=== PATIENT | female | born 1940 | race Caucasian/White ===

== ENCOUNTER 2017-04-14 14:02 | Inpatient (IN) | payer MEDICARE, OTHER ==
[~2017-04-14] VITALS: Ht 162.6 cm; Wt 94.4 kg
[~2017-04-14 14:02] MED LIST: ALEN70 PO; ALPR.5 PO; AZIT250 PO; CALCAVITD PO; CETI10 PO; ETOD200; EXEM25 PO; FOLI1 PO; HYDACE5 PO; LEVSOD100; LEVSOD125 PO; LEVSOD137 PO; LOVA20 PO; LOVA40 PO; METTREX2.5 PO; TENUATE
[2017-04-14 14:39] LABS: BASOPHILS ABSOLUTE AUTO 0.03 K/mm3 (0.00-0.23); BASOPHILS PERCENT AUTO 1 % (0-2); EOSINOPHILS ABSOLUTE AUTO 0.14 K/mm3 (0.00-0.68); EOSINOPHILS PERCENT AUTO 3 % (0-6); Hematocrit 43.5 % (33.0-51.0); Hemoglobin 13.1 g/dL (11.5-16.0); IMMATURE GRAN ABSOLUTE AUTO 0.01 K/mm3 (0.00-0.10); IMMATURE GRAN PERCENT AUTO 0 % (0-1); LYMPHOCYTES ABSOLUTE AUTO 1.28 K/mm3 (0.84-5.20); LYMPHOCYTES PERCENT AUTO 30 % (21-46); MONOCYTES ABSOLUTE AUTO 0.37 K/mm3 (0.16-1.47); MONOCYTES PERCENT AUTO 9 % (4-13); Mean Corpuscular HGB Conc 30.1 g/dL (31.5-36.5); Mean Corpuscular Volume 83 fL (80-100); Mean Platelet Volume 9.4 fL (9.1-12.4); NEUTROPHILS ABSOLUTE AUTO 2.43 K/mm3 (1.96-9.15); NEUTROPHILS PERCENT AUTO 57 % (41-73); Platelet Count 194 K/mm3 (150-400); RDW Coefficient Variation 15.5 % (11.7-14.2); RDW Standard Deviation 46.7 fL (35.1-46.3); Red Blood Cell Count 5.23 M/mm3 (3.80-5.20); White Blood Cell Count 4.26 K/mm3 (4.00-11.30)
[2017-04-14 15:01] LABS: Alanine Aminotransfer (ALT/SGP 45 U/L (12-78); Albumin, Blood 3.9 g/dL (3.4-5.0); Albumin/Globulin Ratio 1.3 (0.8-1.8); Alk Phos 64 U/L (50-136); Anion Gap 5 mmol/L (6-16); Aspartate Aminotrans (AST/SGOT 40 U/L (12-37); Bilirubin, Total 0.6 mg/dL (0.1-1.0); Blood Urea Nitrogen 20 mg/dL (8-24); Bun/Creatinine Ratio 24.1 (12.0-20.0); CO2, Blood 28 mmol/L (21-32); Calcium, Blood 7.7 mg/dL (8.5-10.1); Chloride, Blood 110 mmol/L (98-108); Creatinine, Blood 0.83 mg/dL (0.40-1.00); Globulin, Blood 3.1 g/dL (2.2-4.0); Glomerular Filtration Rate >60 (60-); Glucose, Blood 111 mg/dL (70-99); Sodium, Blood 143 mmol/L (136-145); Troponin I 0.024 ng/mL (0.000-0.040)
[2017-04-14] MEDS ORDERED: WARF5 PO (15:13)
[2017-04-14] MEDS ORDERED: DULO60 (15:14)
[2017-04-14] MEDS ORDERED: LOVA40 PO (15:14)
[2017-04-14] MEDS ORDERED: DOXY100 PO (15:18)
[2017-04-14 15:20] LABS: International Normalized Ratio 2.42; Prothrombin Time Results 25.9 Sec (9.7-11.5)
[2017-04-14 18:53] LABS: Free Thyroxine 1.34 ng/dL (0.70-1.60); Thyroxine (T4) 10.1 ug/dL (4.8-13.9)
[2017-04-14 18:56] LABS: Triiodothyronine, Free 2.61 pg/mL (2.18-3.98)
[2017-04-14 20:45] LABS: Influenza A Negative (NEGATIVE); Influenza B Negative (NEGATIVE)
[2017-04-14 20:56] LABS: Creatine Kinase MB 14.7 ng/mL (0.0-3.6); Creatine Kinase MB Index 4.1 (0.0-4.0); Troponin I 0.036 ng/mL (0.000-0.040)
[2017-04-15 03:03] LABS: Alanine Aminotransfer (ALT/SGP 32 U/L (12-78); Albumin, Blood 3.1 g/dL (3.4-5.0); Albumin/Globulin Ratio 1.3 (0.8-1.8); Alk Phos 47 U/L (50-136); Anion Gap 5 mmol/L (6-16); Aspartate Aminotrans (AST/SGOT 28 U/L (12-37); Bilirubin, Total 0.7 mg/dL (0.1-1.0); Blood Urea Nitrogen 14 mg/dL (8-24); Bun/Creatinine Ratio 20.6 (12.0-20.0); CO2, Blood 27 mmol/L (21-32); Calcium, Blood 7.1 mg/dL (8.5-10.1); Chloride, Blood 113 mmol/L (98-108); Cholesterol 131 mg/dL (50-200); Creatinine, Blood 0.68 mg/dL (0.40-1.00); Globulin, Blood 2.4 g/dL (2.2-4.0); Glomerular Filtration Rate >60 (60-); Glucose, Blood 100 mg/dL (70-99); International Normalized Ratio 2.57; Prothrombin Time Results 27.5 Sec (9.7-11.5); Sodium, Blood 145 mmol/L (136-145); Total Protein, Blood 5.5 g/dL (6.4-8.2); Triglycerides 34 mg/dL (30-160)
[2017-04-15 03:05] LABS: Creatine Kinase MB 12.9 ng/mL (0.0-3.6); Creatine Kinase MB Index 4.2 (0.0-4.0); Troponin I 0.052 ng/mL (0.000-0.040)
[2017-04-16 06:00] LABS: International Normalized Ratio 2.88
[2017-04-16] MEDS ORDERED: DESO.05TL TOP (09:54)
[2017-04-17 05:14] LABS: International Normalized Ratio 2.88
[2017-04-18 05:11] LABS: BASOPHILS ABSOLUTE AUTO 0.03 K/mm3 (0.00-0.23); BASOPHILS PERCENT AUTO 1 % (0-2); EOSINOPHILS ABSOLUTE AUTO 0.14 K/mm3 (0.00-0.68); EOSINOPHILS PERCENT AUTO 4 % (0-6); Hematocrit 40.6 % (33.0-51.0); IMMATURE GRAN ABSOLUTE AUTO 0.01 K/mm3 (0.00-0.10); IMMATURE GRAN PERCENT AUTO 0 % (0-1); LYMPHOCYTES PERCENT AUTO 27 % (21-46); MONOCYTES ABSOLUTE AUTO 0.49 K/mm3 (0.16-1.47); MONOCYTES PERCENT AUTO 12 % (4-13); Mean Corpuscular HGB Conc 29.6 g/dL (31.5-36.5); Mean Corpuscular Volume 85 fL (80-100); Mean Platelet Volume 9.9 fL (9.1-12.4); NEUTROPHILS ABSOLUTE AUTO 2.26 K/mm3 (1.96-9.15); NEUTROPHILS PERCENT AUTO 56 % (41-73); Platelet Count 156 K/mm3 (150-400); RDW Coefficient Variation 15.3 % (11.7-14.2); RDW Standard Deviation 47.2 fL (35.1-46.3); White Blood Cell Count 4.03 K/mm3 (4.00-11.30)
[2017-04-18 05:22] LABS: International Normalized Ratio 2.6; Prothrombin Time Results 27.8 Sec (9.7-11.5)
[2017-04-18 05:36] LABS: Bun/Creatinine Ratio 23.6 (12.0-20.0); Calcium, Blood 8.3 mg/dL (8.5-10.1); Creatinine, Blood 1.06 mg/dL (0.40-1.00); Potassium, Blood 4.2 mmol/L (3.5-5.5)
[2017-04-19 05:04] LABS: International Normalized Ratio 2.63; Prothrombin Time Results 28.2 Sec (9.7-11.5)
[2017-04-19] MEDS ORDERED: ACET325 PO (11:39)
[2017-04-19] MEDS ORDERED: ALBU90OI INH (11:40)
[2017-04-19] MEDS ORDERED: LEVO750 PO (11:41)
[2017-04-19] MEDS ORDERED: DOCU100 PO (11:41)
[2017-04-19] MEDS ORDERED: ATEN25 PO (11:41)
[2017-12-26] MEDS ORDERED: ELIQUIS5 MG PO (18:07)
[2017-12-26] MEDS ORDERED: METTREX2.5 PO (18:09)
[2017-12-26] MEDS ORDERED: FOLI1 PO (18:10)
[2017-12-26] MEDS ORDERED: PROLIA60 MG/1 ML SQ (18:10)
[2017-12-26] MEDS ORDERED: CALCIUM CHEWS (18:10)
== END 2017-04-19 15:20 | disposition home or self-care (01) | DRG 189 ==
LOC: ER 14:02 → MEDS 14:03 → ENPENDDIS 04-19 10:00 → MEDS 04-19 15:20
PROVIDERS: Family Medicine; Internal Medicine; Physician Assistant
DX: J96.01 Acute respiratory failure with hypoxia (principal); J18.9 Pneumonia, unspecified organism; I27.20 Pulmonary hypertension, unspecified; L40.50 Arthropathic psoriasis, unspecified; E03.9 Hypothyroidism, unspecified; E78.5 Hyperlipidemia, unspecified; I10 Essential (primary) hypertension; M81.0 Age-related osteoporosis without current pathological fracture; Z79.01 Long term (current) use of anticoagulants; Z85.3 Personal history of malignant neoplasm of breast; Z86.14 Personal history of Methicillin resistant Staphylococcus aureus infection; Z86.711 Personal history of pulmonary embolism; Z86.718 Personal history of other venous thrombosis and embolism; Z96.659 Presence of unspecified artificial knee joint; F41.9 Anxiety disorder, unspecified
CPT/HCPCS: 36415; 71046; 71260; 78452; 80048; 80053; 82465; 82550; 82553; 83880; 84145; 84436; 84439; 84443; 84478; 84481; 84484; 85025; 85379; 85610; 87804; 92610; 93005; 93010; 93017; 93306; 94761; 94762; 96361; 96374; 97161; 99285; A9500; C9113; G0378; G8978; G8979; G8980; G8996; G8997; G8998; J0280; J2060; J2785; J7030; Q9967

== ENCOUNTER 2019-04-10 18:40 | Emergency (ER) | payer MEDICARE, OTHER ==
[~2019-04-10] VITALS: Ht 160 cm; Wt 94.8 kg
[~2019-04-10 18:40] MED LIST changes: +ACET325 PO; +ALBU90OI INH; +ATEN25 PO; +CALCIUM CHEWS; +DESO.05TL TOP; +DOCU100 PO; +DOXY100 PO; +DULO60; +ELIQUIS5 MG PO; +LEVO750 PO; +PROLIA60 MG/1 ML SQ; +WARF5 PO
[2019-04-10] MEDS ORDERED: Norco 7.5-3251 EACH PO (20:58)
== END 2019-04-10 21:23 | disposition home or self-care (01) ==
LOC: ER 18:40
DX: M54.10 Radiculopathy, site unspecified (principal); Z79.899 Other long term (current) drug therapy; Z79.01 Long term (current) use of anticoagulants; Z98.890 Other specified postprocedural states
CPT/HCPCS: 93971; 96372; 99283-25; A9270; J1170

== ENCOUNTER 2020-06-08 10:29 | Emergency (ER) | payer MEDICARE, OTHER ==
[~2020-06-08] VITALS: Ht 160 cm; Wt 90.7 kg
[~2020-06-08 10:29] MED LIST changes: +Norco 7.5-3251 EACH PO
[2020-06-08] MEDS ORDERED: Roxicodone5 MG PO (15:28)
== END 2020-06-08 15:56 | disposition home or self-care (01) ==
LOC: ER 10:29
DX: S32.039A Unspecified fracture of third lumbar vertebra, initial encounter for closed fracture (principal); Z79.899 Other long term (current) drug therapy; Z79.01 Long term (current) use of anticoagulants; Z98.890 Other specified postprocedural states; X58.XXXA Exposure to other specified factors, initial encounter
CPT/HCPCS: 72131; 96372; 99283-25; A9270; J1170

== ENCOUNTER 2021-05-15 10:24 | Emergency (ER) | payer MEDICARE, OTHER ==
[~2021-05-15] VITALS: Ht 160 cm; Wt 90.7 kg
[~2021-05-15 10:24] MED LIST changes: +Roxicodone5 MG PO
[2021-05-15 11:34] LABS: BASOPHILS ABSOLUTE AUTO 0.04 K/mm3 (0.00-0.23); BASOPHILS PERCENT AUTO 0 % (0-2); EOSINOPHILS ABSOLUTE AUTO 0.03 K/mm3 (0.00-0.68); EOSINOPHILS PERCENT AUTO 0 % (0-6); Hematocrit 43.2 % (33.0-51.0); Hemoglobin 13.4 g/dL (11.5-16.0); IMMATURE GRAN ABSOLUTE AUTO 0.14 K/mm3 (0.00-0.10); IMMATURE GRAN PERCENT AUTO 1 % (0-1); LYMPHOCYTES ABSOLUTE AUTO 0.75 K/mm3 (0.84-5.20); LYMPHOCYTES PERCENT AUTO 6 % (21-46); MONOCYTES ABSOLUTE AUTO 0.63 K/mm3 (0.16-1.47); MONOCYTES PERCENT AUTO 5 % (4-13); Mean Corpuscular HGB 28.7 pg (26.0-34.0); Mean Corpuscular Volume 93 fL (80-100); NEUTROPHILS ABSOLUTE AUTO 10.62 K/mm3 (1.96-9.15); NEUTROPHILS PERCENT AUTO 87 % (41-73); Platelet Count 128 K/mm3 (150-400); RDW Coefficient Variation 15.8 % (11.7-14.2); RDW Standard Deviation 53.4 fL (35.1-46.3); Red Blood Cell Count 4.67 M/mm3 (3.80-5.20); White Blood Cell Count 12.21 K/mm3 (4.00-11.30)
[2021-05-15 11:42] LABS: Calcium, Blood 8.7 mg/dL (8.5-10.1); Creatinine, Blood 1.16 mg/dL (0.40-1.00); Potassium, Blood 4.1 mmol/L (3.5-5.5)
== END 2021-05-15 13:58 | disposition home or self-care (01) ==
LOC: ER 10:24
PROVIDERS: Emergency Medicine
DX: M54.50 Low back pain, unspecified (principal)
CPT/HCPCS: 36415; 72100; 80048; 85025; 85651; 96374; 96375; 99283-25; A9270; J1170; J2405

== ENCOUNTER 2021-10-06 02:55 | Emergency (ER) | payer MEDICARE, OTHER ==
[~2021-10-06] VITALS: Ht 160 cm; Wt 86.2 kg
[2021-10-06 03:18] LABS: BASOPHILS ABSOLUTE AUTO 0.03 K/mm3 (0.00-0.23); BASOPHILS PERCENT AUTO 1 % (0-2); EOSINOPHILS ABSOLUTE AUTO 0.11 K/mm3 (0.00-0.68); EOSINOPHILS PERCENT AUTO 2 % (0-6); Hemoglobin 12.7 g/dL (11.5-16.0); IMMATURE GRAN ABSOLUTE AUTO 0.01 K/mm3 (0.00-0.10); IMMATURE GRAN PERCENT AUTO 0 % (0-1); LYMPHOCYTES ABSOLUTE AUTO 1.42 K/mm3 (0.84-5.20); LYMPHOCYTES PERCENT AUTO 31 % (21-46); MONOCYTES ABSOLUTE AUTO 0.61 K/mm3 (0.16-1.47); MONOCYTES PERCENT AUTO 13 % (4-13); Mean Corpuscular HGB 28.6 pg (26.0-34.0); Mean Corpuscular HGB Conc 32.6 g/dL (31.5-36.5); Mean Corpuscular Volume 88 fL (80-100); Mean Platelet Volume 10.1 fL (9.1-12.4); NEUTROPHILS ABSOLUTE AUTO 2.36 K/mm3 (1.96-9.15); NEUTROPHILS PERCENT AUTO 52 % (41-73); Platelet Count 125 K/mm3 (150-400); RDW Coefficient Variation 16.3 % (11.7-14.2); RDW Standard Deviation 52.5 fL (35.1-46.3); Red Blood Cell Count 4.44 M/mm3 (3.80-5.20); White Blood Cell Count 4.54 K/mm3 (4.00-11.30)
[2021-10-06 03:28] LABS: Albumin, Blood 2.9 g/dL (3.4-5.0); Albumin/Globulin Ratio 1.4 (0.8-1.8); Bun/Creatinine Ratio 17.1 (12.0-20.0); Calcium, Blood 8.3 mg/dL (8.5-10.1); Creatinine, Blood 1.11 mg/dL (0.40-1.00); Globulin, Blood 2.1 g/dL (2.2-4.0); Potassium, Blood 4.3 mmol/L (3.5-5.5)
== END 2021-10-06 06:26 | disposition home or self-care (01) ==
LOC: ER 02:55
PROVIDERS: Student in an Organized Health Care Education/Training Program
DX: R07.9 Chest pain, unspecified (principal); Z79.01 Long term (current) use of anticoagulants; Z79.899 Other long term (current) drug therapy
CPT/HCPCS: 71045; 80053; 84484; 85025; 93005; 93010

== ENCOUNTER 2022-01-11 12:17 | Emergency (ER) | payer MEDICARE, OTHER ==
[~2022-01-11] VITALS: Ht 165.1 cm; Wt 97.5 kg
== END 2022-01-11 13:47 | disposition home or self-care (01) ==
LOC: ER 12:17
DX: S80.12XA Contusion of left lower leg, initial encounter (principal); Z79.899 Other long term (current) drug therapy; Z79.01 Long term (current) use of anticoagulants; W22.8XXA Striking against or struck by other objects, initial encounter
CPT/HCPCS: 99283

== ENCOUNTER 2022-01-17 00:26 | Day surgery (SDC) | payer MEDICARE, OTHER ==
[~2022-01-17] VITALS: Wt 82.7 kg
[2022-01-17 14:52] LABS: BASOPHILS ABSOLUTE AUTO 0.07 K/mm3 (0.00-0.23); BASOPHILS PERCENT AUTO 1 % (0-2); EOSINOPHILS ABSOLUTE AUTO 0.17 K/mm3 (0.00-0.68); EOSINOPHILS PERCENT AUTO 2 % (0-6); Hematocrit 40.3 % (33.0-51.0); Hemoglobin 12.7 g/dL (11.5-16.0); IMMATURE GRAN ABSOLUTE AUTO 0.02 K/mm3 (0.00-0.10); IMMATURE GRAN PERCENT AUTO 0 % (0-1); LYMPHOCYTES ABSOLUTE AUTO 1.96 K/mm3 (0.84-5.20); LYMPHOCYTES PERCENT AUTO 25 % (21-46); MONOCYTES ABSOLUTE AUTO 0.72 K/mm3 (0.16-1.47); MONOCYTES PERCENT AUTO 9 % (4-13); Mean Corpuscular HGB 27.7 pg (26.0-34.0); Mean Corpuscular HGB Conc 31.5 g/dL (31.5-36.5); Mean Corpuscular Volume 88 fL (80-100); Mean Platelet Volume 10.4 fL (9.1-12.4); NEUTROPHILS ABSOLUTE AUTO 4.89 K/mm3 (1.96-9.15); NEUTROPHILS PERCENT AUTO 62 % (41-73); Platelet Count 200 K/mm3 (150-400); RDW Coefficient Variation 14.4 % (11.7-14.2); RDW Standard Deviation 46.2 fL (35.1-46.3); Red Blood Cell Count 4.59 M/mm3 (3.80-5.20); White Blood Cell Count 7.83 K/mm3 (4.00-11.30)
[2022-01-17 15:13] LABS: Albumin, Blood 3.3 g/dL (3.4-5.0); Albumin/Globulin Ratio 1.2 (0.8-1.8); Bilirubin, Total 0.9 mg/dL (0.1-1.0); Bun/Creatinine Ratio 24.1 (12.0-20.0); Calcium, Blood 8.8 mg/dL (8.5-10.1); Creatinine, Blood 1.16 mg/dL (0.40-1.00); Globulin, Blood 2.7 g/dL (2.2-4.0)
[2022-01-17] MEDS ORDERED: Ventolin/Prove6.7 GM INH (16:13)
[2022-01-17] MEDS ORDERED: IPRATROPIUM BRO30 ML (16:17)
[2022-01-17] MEDS ORDERED: ATENOLOL25 MG PO (16:18)
[2022-01-17] MEDS ORDERED: Monodox100 MG PO (16:18)
[2022-01-17] MEDS ORDERED: Metronidazole T45 GM TOP (16:19)
[2022-01-17] MEDS ORDERED: SYNTHROID125 MCG PO (16:58)
[2022-01-17] MEDS ORDERED: FLUO60T (17:17)
[2022-01-17] MEDS ORDERED: Vitamin D1000 UNI1 PO (17:17)
[2022-01-17] MEDS ORDERED: ACET325 PO (17:18)
[2022-01-17] MEDS ORDERED: MIRALAX17 GM PO (17:18)
[2022-01-17] MEDS ORDERED: SENN187 PO (17:19)
[2022-01-17] MEDS ORDERED: PROLIA60 MG/1 ML SC (17:19)
[2022-01-17] MEDS ORDERED: FURO40 PO (17:20)
[2022-01-17] MEDS ORDERED: POTA10T PO (17:21)
[2022-01-17] MEDS ORDERED: TRIDERM28.4 GM TOP (17:23)
[2022-01-17] MEDS ORDERED: LINZESS145 MCG PO (17:23)
[2022-01-17] MEDS ORDERED: MOVANTIK25 M1 PO (17:24)
== END 2022-01-17 16:30 | disposition home or self-care (01) ==
LOC: ATC 00:26
PROVIDERS: Family Medicine
DX: L40.59 Other psoriatic arthropathy (principal); L40.8 Other psoriasis; M81.0 Age-related osteoporosis without current pathological fracture; I65.22 Occlusion and stenosis of left carotid artery; I48.91 Unspecified atrial fibrillation; E78.49 Other hyperlipidemia; D51.0 Vitamin B12 deficiency anemia due to intrinsic factor deficiency; G47.00 Insomnia, unspecified; I10 Essential (primary) hypertension; E03.8 Other specified hypothyroidism; M16.12 Unilateral primary osteoarthritis, left hip; M47.26 Other spondylosis with radiculopathy, lumbar region; Z86.718 Personal history of other venous thrombosis and embolism; Z86.711 Personal history of pulmonary embolism; Z96.652 Presence of left artificial knee joint; Z98.1 Arthrodesis status; Z88.8 Allergy status to other drugs, medicaments and biological substances
CPT/HCPCS: 80053; 85025; 96413; 96415; J7050; Q5103

== ENCOUNTER 2022-01-31 02:05 | Day surgery (SDC) | payer MEDICARE, OTHER ==
[~2022-01-31 02:05] MED LIST changes: +ATENOLOL25 MG PO; +FLUO60T; +FURO40 PO; +IPRATROPIUM BRO30 ML; +LINZESS145 MCG PO; +MIRALAX17 GM PO; +MOVANTIK25 M1 PO; +Metronidazole T45 GM TOP; +Monodox100 MG PO; +POTA10T PO; +PROLIA60 MG/1 ML SC; +SENN187 PO; +SYNTHROID125 MCG PO; +TRIDERM28.4 GM TOP; +Ventolin/Prove6.7 GM INH; +Vitamin D1000 UNI1 PO
== END 2022-01-31 12:01 | disposition home or self-care (01) ==
LOC: ATC 02:05
DX: L40.59 Other psoriatic arthropathy (principal); Z88.8 Allergy status to other drugs, medicaments and biological substances; E78.5 Hyperlipidemia, unspecified; C50.919 Malignant neoplasm of unspecified site of unspecified female breast; I10 Essential (primary) hypertension; L40.8 Other psoriasis; M16.12 Unilateral primary osteoarthritis, left hip; M47.26 Other spondylosis with radiculopathy, lumbar region; G47.00 Insomnia, unspecified; M81.0 Age-related osteoporosis without current pathological fracture
CPT/HCPCS: 96413; 96415; J7050; Q5103

== ENCOUNTER 2022-04-24 00:14 | Day surgery (SDC) | payer MEDICARE, OTHER ==
[2022-04-24 14:44] LABS: BASOPHILS ABSOLUTE AUTO 0.04 K/mm3 (0.00-0.23); BASOPHILS PERCENT AUTO 1 % (0-2); EOSINOPHILS ABSOLUTE AUTO 0.15 K/mm3 (0.00-0.68); EOSINOPHILS PERCENT AUTO 3 % (0-6); Hematocrit 40.7 % (33.0-51.0); Hemoglobin 12.8 g/dL (11.5-16.0); IMMATURE GRAN ABSOLUTE AUTO 0.01 K/mm3 (0.00-0.10); IMMATURE GRAN PERCENT AUTO 0 % (0-1); LYMPHOCYTES ABSOLUTE AUTO 1.91 K/mm3 (0.84-5.20); LYMPHOCYTES PERCENT AUTO 38 % (21-46); MONOCYTES ABSOLUTE AUTO 0.55 K/mm3 (0.16-1.47); MONOCYTES PERCENT AUTO 11 % (4-13); Mean Corpuscular HGB 27.4 pg (26.0-34.0); Mean Corpuscular HGB Conc 31.4 g/dL (31.5-36.5); Mean Corpuscular Volume 87 fL (80-100); Mean Platelet Volume 11.4 fL (9.1-12.4); NEUTROPHILS ABSOLUTE AUTO 2.33 K/mm3 (1.96-9.15); NEUTROPHILS PERCENT AUTO 47 % (41-73); Platelet Count 129 K/mm3 (150-400); RDW Coefficient Variation 15.4 % (11.7-14.2); RDW Standard Deviation 49.2 fL (35.1-46.3); Red Blood Cell Count 4.68 M/mm3 (3.80-5.20); White Blood Cell Count 4.99 K/mm3 (4.00-11.30)
[2022-04-24 15:08] LABS: Albumin/Globulin Ratio 1.2 (0.8-1.8); Bilirubin, Total 0.7 mg/dL (0.1-1.0); Creatinine, Blood 0.89 mg/dL (0.40-1.00); Globulin, Blood 2.4 g/dL (2.2-4.0); Potassium, Blood 4.3 mmol/L (3.5-5.5); Total Protein, Blood 5.4 g/dL (6.4-8.2)
== END 2022-04-24 22:45 | disposition home or self-care (01) ==
LOC: ATC 00:14
PROVIDERS: Family Medicine
DX: L40.59 Other psoriatic arthropathy (principal); L40.8 Other psoriasis; E03.9 Hypothyroidism, unspecified; E78.5 Hyperlipidemia, unspecified; Z88.8 Allergy status to other drugs, medicaments and biological substances; M81.0 Age-related osteoporosis without current pathological fracture; I10 Essential (primary) hypertension
CPT/HCPCS: 80053; 85025; J7050; Q5103

== ENCOUNTER 2022-10-10 02:35 | Day surgery (SDC) | payer MEDICARE, OTHER ==
[~2022-10-10] VITALS: Wt 82.9 kg
[2022-10-10 13:35] VITALS: BP 121/50
== END 2022-10-10 16:02 | disposition home or self-care (01) ==
LOC: ATC 02:35
DX: L40.59 Other psoriatic arthropathy (principal); E03.9 Hypothyroidism, unspecified; E78.5 Hyperlipidemia, unspecified; M81.0 Age-related osteoporosis without current pathological fracture; G47.00 Insomnia, unspecified; C50.919 Malignant neoplasm of unspecified site of unspecified female breast; I10 Essential (primary) hypertension; M47.26 Other spondylosis with radiculopathy, lumbar region; M16.12 Unilateral primary osteoarthritis, left hip
CPT/HCPCS: 96413; 96415; J7050; Q5103

== ENCOUNTER 2022-12-12 02:29 | Day surgery (SDC) | payer MEDICARE, OTHER ==
[2022-12-12 13:44] VITALS: BP 108/51
[2022-12-12 14:48] LABS: BASOPHILS ABSOLUTE AUTO 0.05 K/mm3 (0.00-0.23); BASOPHILS PERCENT AUTO 1 % (0-2); EOSINOPHILS ABSOLUTE AUTO 0.11 K/mm3 (0.00-0.68); EOSINOPHILS PERCENT AUTO 2 % (0-6); Hematocrit 43.3 % (33.0-51.0); Hemoglobin 13.2 g/dL (11.5-16.0); IMMATURE GRAN ABSOLUTE AUTO 0.01 K/mm3 (0.00-0.10); IMMATURE GRAN PERCENT AUTO 0 % (0-1); LYMPHOCYTES ABSOLUTE AUTO 2.14 K/mm3 (0.84-5.20); LYMPHOCYTES PERCENT AUTO 39 % (21-46); MONOCYTES ABSOLUTE AUTO 0.52 K/mm3 (0.16-1.47); MONOCYTES PERCENT AUTO 9 % (4-13); Mean Corpuscular HGB 27.2 pg (26.0-34.0); Mean Corpuscular HGB Conc 30.5 g/dL (31.5-36.5); Mean Corpuscular Volume 89 fL (80-100); Mean Platelet Volume 11.2 fL (9.1-12.4); NEUTROPHILS ABSOLUTE AUTO 2.71 K/mm3 (1.96-9.15); NEUTROPHILS PERCENT AUTO 49 % (41-73); NRBC ABSOLUTE 0.05 K/mm3 (0.00-0.02); NRBC Auto 0.9 /100 WBC (0.0-0.2); Platelet Count 144 K/mm3 (150-400); RDW Coefficient Variation 14.6 % (11.7-14.2); RDW Standard Deviation 47.7 fL (35.1-46.3); Red Blood Cell Count 4.86 M/mm3 (3.80-5.20); White Blood Cell Count 5.54 K/mm3 (4.00-11.30)
[2022-12-12 15:30] LABS: Bilirubin, Total 0.9 mg/dL (0.1-1.0); Bun/Creatinine Ratio 22.7 (12.0-20.0); Calcium, Blood 8.5 mg/dL (8.5-10.1); Creatinine, Blood 0.88 mg/dL (0.40-1.00); Potassium, Blood 4.4 mmol/L (3.5-5.5)
== END 2022-12-12 16:41 | disposition home or self-care (01) ==
LOC: ATC 02:29
PROVIDERS: Family Medicine
DX: L40.59 Other psoriatic arthropathy (principal); E78.49 Other hyperlipidemia; M81.0 Age-related osteoporosis without current pathological fracture; D51.0 Vitamin B12 deficiency anemia due to intrinsic factor deficiency; C50.919 Malignant neoplasm of unspecified site of unspecified female breast; I10 Essential (primary) hypertension; M47.26 Other spondylosis with radiculopathy, lumbar region; M16.12 Unilateral primary osteoarthritis, left hip
CPT/HCPCS: 80053; 85025; 96413; 96415; J7050; Q5103

== ENCOUNTER 2023-02-07 01:01 | Day surgery (SDC) | payer MEDICARE, OTHER ==
[~2023-02-07] VITALS: Wt 83.9 kg
[2023-02-07 13:58] VITALS: BP 113/52
[2023-02-07 14:46] LABS: BASOPHILS ABSOLUTE AUTO 0.03 K/mm3 (0.00-0.23); BASOPHILS PERCENT AUTO 1 % (0-2); EOSINOPHILS ABSOLUTE AUTO 0.14 K/mm3 (0.00-0.68); EOSINOPHILS PERCENT AUTO 2 % (0-6); Hematocrit 42.9 % (33.0-51.0); Hemoglobin 13.3 g/dL (11.5-16.0); IMMATURE GRAN ABSOLUTE AUTO 0.01 K/mm3 (0.00-0.10); IMMATURE GRAN PERCENT AUTO 0 % (0-1); LYMPHOCYTES ABSOLUTE AUTO 2.49 K/mm3 (0.84-5.20); LYMPHOCYTES PERCENT AUTO 43 % (21-46); MONOCYTES ABSOLUTE AUTO 0.67 K/mm3 (0.16-1.47); MONOCYTES PERCENT AUTO 12 % (4-13); Mean Corpuscular HGB 26.5 pg (26.0-34.0); Mean Corpuscular Volume 86 fL (80-100); Mean Platelet Volume 10.5 fL (9.1-12.4); NEUTROPHILS ABSOLUTE AUTO 2.45 K/mm3 (1.96-9.15); NEUTROPHILS PERCENT AUTO 42 % (41-73); Platelet Count 168 K/mm3 (150-400); RDW Coefficient Variation 14.7 % (11.7-14.2); RDW Standard Deviation 46.5 fL (35.1-46.3); Red Blood Cell Count 5.01 M/mm3 (3.80-5.20); White Blood Cell Count 5.79 K/mm3 (4.00-11.30)
[2023-02-07 14:54] LABS: Albumin, Blood 3.5 g/dL (3.4-5.0); Albumin/Globulin Ratio 1.2 (0.8-1.8); Bilirubin, Total 0.5 mg/dL (0.1-1.0); Bun/Creatinine Ratio 26.8 (12.0-20.0); Calcium, Blood 8.4 mg/dL (8.5-10.1); Creatinine, Blood 0.93 mg/dL (0.40-1.00); Globulin, Blood 2.9 g/dL (2.2-4.0); Potassium, Blood 3.9 mmol/L (3.5-5.5); Total Protein, Blood 6.4 g/dL (6.4-8.2)
== END 2023-02-07 16:40 | disposition home or self-care (01) ==
LOC: ATC 01:01
PROVIDERS: Family Medicine
DX: L40.59 Other psoriatic arthropathy (principal); E03.8 Other specified hypothyroidism; E78.49 Other hyperlipidemia; M81.0 Age-related osteoporosis without current pathological fracture; D51.0 Vitamin B12 deficiency anemia due to intrinsic factor deficiency; I10 Essential (primary) hypertension; M47.26 Other spondylosis with radiculopathy, lumbar region; M16.12 Unilateral primary osteoarthritis, left hip; C50.919 Malignant neoplasm of unspecified site of unspecified female breast; G47.00 Insomnia, unspecified; Z79.890 Hormone replacement therapy; Z79.899 Other long term (current) drug therapy
CPT/HCPCS: 80053; 85025; 96413; 96415; J7050; Q5103

== ENCOUNTER 2023-04-04 01:33 | Day surgery (SDC) | payer MEDICARE, OTHER ==
[2023-04-04 14:24] VITALS: BP 102/69
[2023-04-04 14:42] LABS: BASOPHILS ABSOLUTE AUTO 0.04 K/mm3 (0.00-0.23); BASOPHILS PERCENT AUTO 1 % (0-2); EOSINOPHILS ABSOLUTE AUTO 0.13 K/mm3 (0.00-0.68); EOSINOPHILS PERCENT AUTO 3 % (0-6); Hematocrit 42.1 % (33.0-51.0); Hemoglobin 13.1 g/dL (11.5-16.0); IMMATURE GRAN ABSOLUTE AUTO 0.01 K/mm3 (0.00-0.10); IMMATURE GRAN PERCENT AUTO 0 % (0-1); LYMPHOCYTES ABSOLUTE AUTO 2.12 K/mm3 (0.84-5.20); LYMPHOCYTES PERCENT AUTO 41 % (21-46); MONOCYTES ABSOLUTE AUTO 0.61 K/mm3 (0.16-1.47); MONOCYTES PERCENT AUTO 12 % (4-13); Mean Corpuscular HGB 26.2 pg (26.0-34.0); Mean Corpuscular HGB Conc 31.1 g/dL (31.5-36.5); Mean Corpuscular Volume 84 fL (80-100); Mean Platelet Volume 10.2 fL (9.1-12.4); NEUTROPHILS ABSOLUTE AUTO 2.22 K/mm3 (1.96-9.15); NEUTROPHILS PERCENT AUTO 43 % (41-73); Platelet Count 159 K/mm3 (150-400); RDW Coefficient Variation 15.3 % (11.7-14.2); RDW Standard Deviation 47.1 fL (35.1-46.3); White Blood Cell Count 5.13 K/mm3 (4.00-11.30)
[2023-04-04 15:03] LABS: Albumin, Blood 3.4 g/dL (3.4-5.0); Albumin/Globulin Ratio 1.1 (0.8-1.8); Bilirubin, Total 0.8 mg/dL (0.1-1.0); Bun/Creatinine Ratio 27.3 (12.0-20.0); Calcium, Blood 8.6 mg/dL (8.5-10.1); Creatinine, Blood 0.88 mg/dL (0.40-1.00); Potassium, Blood 4.3 mmol/L (3.5-5.5); Total Protein, Blood 6.4 g/dL (6.4-8.2)
== END 2023-04-04 16:40 | disposition home or self-care (01) ==
LOC: ATC 01:33
PROVIDERS: Family Medicine
DX: L40.59 Other psoriatic arthropathy (principal); E78.49 Other hyperlipidemia; M81.0 Age-related osteoporosis without current pathological fracture; G47.00 Insomnia, unspecified; C50.919 Malignant neoplasm of unspecified site of unspecified female breast; I10 Essential (primary) hypertension; M16.12 Unilateral primary osteoarthritis, left hip; E03.8 Other specified hypothyroidism; M47.26 Other spondylosis with radiculopathy, lumbar region; Z88.5 Allergy status to narcotic agent; Z88.8 Allergy status to other drugs, medicaments and biological substances
CPT/HCPCS: 80053; 85025; 96413; 96415; J7050; Q5103

== ENCOUNTER → 2023-09-12 | Outpatient (CLI) | payer MEDICARE, OTHER ==
[~2023-09-12] MED LIST changes: +CIPR250 PO
== END ==
LOC: LAB 10:01 → LAB SHORT 10:01
DX: N39.0 Urinary tract infection, site not specified (principal)
CPT/HCPCS: 87077; 87086; 87186

== ENCOUNTER 2023-09-25 02:02 | Day surgery (SDC) | payer MEDICARE, OTHER ==
[~2023-09-25 02:02] MED LIST changes: -CIPR250 PO
[2023-09-25] MEDS ORDERED: Infliximab-DYYB 400 MG in NS 250 ML IV SCH (06:00)
[2023-09-25 14:06] VITALS: BP 139/59
--- NOTE | 2023-09-25 14:09 | NUR ---
pt is on antibiotic for urinary tract infection, she has been on it for almost [address] danielito boateng called to verify pt can still recieve inflectra. dr approved infusion since pt is almost done with antibiotic. this occured at 1408, communication was through sarah.
[2023-09-25] MEDS ORDERED: CIPR250 PO (14:16)
[2023-09-25 14:37] LABS: BASOPHILS ABSOLUTE AUTO 0.05 K/mm3 (0.00-0.23); BASOPHILS PERCENT AUTO 1 % (0-2); EOSINOPHILS ABSOLUTE AUTO 0.12 K/mm3 (0.00-0.68); EOSINOPHILS PERCENT AUTO 2 % (0-6); Hematocrit 41.9 % (33.0-51.0); Hemoglobin 13.3 g/dL (11.5-16.0); IMMATURE GRAN ABSOLUTE AUTO 0.01 K/mm3 (0.00-0.10); IMMATURE GRAN PERCENT AUTO 0 % (0-1); LYMPHOCYTES ABSOLUTE AUTO 1.89 K/mm3 (0.84-5.20); LYMPHOCYTES PERCENT AUTO 36 % (21-46); MONOCYTES ABSOLUTE AUTO 0.65 K/mm3 (0.16-1.47); MONOCYTES PERCENT AUTO 12 % (4-13); Mean Corpuscular HGB 27.5 pg (26.0-34.0); Mean Corpuscular HGB Conc 31.7 g/dL (31.5-36.5); Mean Corpuscular Volume 87 fL (80-100); NEUTROPHILS ABSOLUTE AUTO 2.51 K/mm3 (1.96-9.15); NEUTROPHILS PERCENT AUTO 48 % (41-73); Platelet Count 155 K/mm3 (150-400); RDW Coefficient Variation 15.9 % (11.7-14.2); RDW Standard Deviation 50.7 fL (35.1-46.3); Red Blood Cell Count 4.84 M/mm3 (3.80-5.20); White Blood Cell Count 5.23 K/mm3 (4.00-11.30)
[2023-09-25 15:00] LABS: Albumin, Blood 3.2 g/dL (3.4-5.0); Albumin/Globulin Ratio 1.2 (0.8-1.8); Bilirubin, Total 0.8 mg/dL (0.1-1.0); Bun/Creatinine Ratio 25.5 (12.0-20.0); Calcium, Blood 8.4 mg/dL (8.5-10.1); Creatinine, Blood 1.02 mg/dL (0.40-1.00); Globulin, Blood 2.6 g/dL (2.2-4.0); Potassium, Blood 4.3 mmol/L (3.5-5.5); Total Protein, Blood 5.8 g/dL (6.4-8.2)
== END 2023-09-25 16:42 | disposition home or self-care (01) ==
LOC: ATC 02:02
PROVIDERS: Family Medicine
DX: L40.59 Other psoriatic arthropathy (principal); E78.49 Other hyperlipidemia; M81.0 Age-related osteoporosis without current pathological fracture; I10 Essential (primary) hypertension; E03.9 Hypothyroidism, unspecified; M16.12 Unilateral primary osteoarthritis, left hip; Z79.890 Hormone replacement therapy; Z79.899 Other long term (current) drug therapy
CPT/HCPCS: 80053; 85025; 96413; 96415; J7050; Q5103

== ENCOUNTER → 2023-09-26 | Outpatient (CLI) | payer MEDICARE, OTHER ==
[~2023-09-26] MED LIST changes: +CIPR250 PO
[2023-09-26 16:47] LABS: Source, Urine Voided
[2023-09-26 17:19] LABS: Appearance, Urine Clear (Clear); Bilirubin, Urine Neg (Neg); Blood, Urine Neg (Neg); Color, Urine Yellow (P-Yellow); Glucose Qualitative, Urine Neg (Neg); Ketones, Urine Neg (Neg); Leukocyte Esterase, Urine Neg (Neg); Nitrite, Urine Neg (Neg); Protein, Urine Neg (Neg); Urobilinogen, Urine NORM (Normal)
== END | disposition home or self-care (01) ==
LOC: LAB 16:43 → LAB SHORT 16:43
PROVIDERS: Family Medicine
DX: N39.0 Urinary tract infection, site not specified (principal)
CPT/HCPCS: 81003; 87077; 87086; 87186

== ENCOUNTER → 2023-10-14 | Outpatient (CLI) | payer MEDICARE, OTHER ==
[2023-10-14 09:14] LABS: Source, Urine Voided
[2023-10-14 10:45] LABS: Appearance, Urine Clear (Clear); Bilirubin, Urine Neg (Neg); Blood, Urine Neg (Neg); Color, Urine Yellow (P-Yellow); Glucose Qualitative, Urine Neg (Neg); Ketones, Urine Neg (Neg); Leukocyte Esterase, Urine Neg (Neg); Nitrite, Urine Neg (Neg); Protein, Urine Neg (Neg); Urobilinogen, Urine 1+ (Normal)
== END ==
LOC: LAB SHORT 09:11 → LAB 09:11
PROVIDERS: Family Medicine
DX: N39.0 Urinary tract infection, site not specified (principal)
CPT/HCPCS: 81003; 87086

== ENCOUNTER 2023-11-20 01:25 | Day surgery (SDC) | payer MEDICARE, OTHER ==
[2023-11-20] MEDS ORDERED: Infliximab-DYYB 400 MG in NS 250 ML IV SCH (06:00)
[2023-11-20 15:00] VITALS: BP 118/63
[2023-11-20 15:56] LABS: BASOPHILS ABSOLUTE AUTO 0.04 K/mm3 (0.00-0.23); BASOPHILS PERCENT AUTO 1 % (0-2); EOSINOPHILS PERCENT AUTO 2 % (0-6); Hematocrit 46.1 % (33.0-51.0); Hemoglobin 14.4 g/dL (11.5-16.0); IMMATURE GRAN ABSOLUTE AUTO 0.01 K/mm3 (0.00-0.10); IMMATURE GRAN PERCENT AUTO 0 % (0-1); LYMPHOCYTES PERCENT AUTO 44 % (21-46); MONOCYTES ABSOLUTE AUTO 0.74 K/mm3 (0.16-1.47); MONOCYTES PERCENT AUTO 13 % (4-13); Mean Corpuscular HGB Conc 31.2 g/dL (31.5-36.5); Mean Corpuscular Volume 87 fL (80-100); Mean Platelet Volume 10.3 fL (9.1-12.4); NEUTROPHILS ABSOLUTE AUTO 2.28 K/mm3 (1.96-9.15); NEUTROPHILS PERCENT AUTO 40 % (41-73); Platelet Count 174 K/mm3 (150-400); RDW Coefficient Variation 15.8 % (11.7-14.2); RDW Standard Deviation 49.9 fL (35.1-46.3); Red Blood Cell Count 5.33 M/mm3 (3.80-5.20); White Blood Cell Count 5.67 K/mm3 (4.00-11.30)
[2023-11-20 16:44] LABS: Albumin, Blood 3.3 g/dL (3.4-5.0); Albumin/Globulin Ratio 1.2 (0.8-1.8); Bilirubin, Total 0.8 mg/dL (0.1-1.0); Bun/Creatinine Ratio 21.6 (12.0-20.0); Calcium, Blood 8.7 mg/dL (8.5-10.1); Creatinine, Blood 0.93 mg/dL (0.40-1.00); Globulin, Blood 2.7 g/dL (2.2-4.0); Potassium, Blood 4.5 mmol/L (3.5-5.5)
== END 2023-11-20 18:00 | disposition home or self-care (01) ==
LOC: ATC 01:25
PROVIDERS: Family Medicine
DX: L40.59 Other psoriatic arthropathy (principal); E03.9 Hypothyroidism, unspecified; E78.5 Hyperlipidemia, unspecified; I48.91 Unspecified atrial fibrillation; M81.0 Age-related osteoporosis without current pathological fracture; M16.12 Unilateral primary osteoarthritis, left hip; I10 Essential (primary) hypertension; Z79.899 Other long term (current) drug therapy
CPT/HCPCS: 80053; 85025; 96413; 96415; J7050; Q5103

== ENCOUNTER → 2024-01-28 | Outpatient (CLI) | payer MEDICARE, OTHER | END | disposition home or self-care (01) | LOC: LAB SHORT 17:24 → LAB 17:24 | DX: N39.0 Urinary tract infection, site not specified (principal) | CPT/HCPCS: 87086 ==

== ENCOUNTER 2024-03-11 01:37 | Day surgery (SDC) | payer MEDICARE, OTHER ==
[2024-03-11] MEDS ORDERED: Infliximab-DYYB 400 MG in NS 250 ML IV SCH (06:00)
[2024-03-11 14:31] VITALS: BP 131/51
[2024-03-11 14:54] LABS: BASOPHILS ABSOLUTE AUTO 0.05 K/mm3 (0.00-0.23); BASOPHILS PERCENT AUTO 1 % (0-2); EOSINOPHILS ABSOLUTE AUTO 0.14 K/mm3 (0.00-0.68); EOSINOPHILS PERCENT AUTO 2 % (0-6); Hematocrit 47.9 % (33.0-51.0); Hemoglobin 15.3 g/dL (11.5-16.0); IMMATURE GRAN ABSOLUTE AUTO 0.01 K/mm3 (0.00-0.10); IMMATURE GRAN PERCENT AUTO 0 % (0-1); LYMPHOCYTES ABSOLUTE AUTO 2.65 K/mm3 (0.84-5.20); LYMPHOCYTES PERCENT AUTO 42 % (21-46); MONOCYTES ABSOLUTE AUTO 0.69 K/mm3 (0.16-1.47); MONOCYTES PERCENT AUTO 11 % (4-13); Mean Corpuscular HGB 29.1 pg (26.0-34.0); Mean Corpuscular HGB Conc 31.9 g/dL (31.5-36.5); Mean Corpuscular Volume 91 fL (80-100); NEUTROPHILS PERCENT AUTO 44 % (41-73); Platelet Count 158 K/mm3 (150-400); RDW Coefficient Variation 15.9 % (11.7-14.2); RDW Standard Deviation 54.3 fL (35.1-46.3); Red Blood Cell Count 5.25 M/mm3 (3.80-5.20); White Blood Cell Count 6.34 K/mm3 (4.00-11.30)
[2024-03-11 15:18] LABS: Albumin, Blood 3.3 g/dL (3.4-5.0); Albumin/Globulin Ratio 1.1 (0.8-1.8); Bun/Creatinine Ratio 21.7 (12.0-20.0); Calcium, Blood 9.3 mg/dL (8.5-10.1); Creatinine, Blood 0.97 mg/dL (0.40-1.00); Globulin, Blood 3.1 g/dL (2.2-4.0); Potassium, Blood 4.4 mmol/L (3.5-5.5); Total Protein, Blood 6.4 g/dL (6.4-8.2)
== END 2024-03-11 16:54 | disposition home or self-care (01) ==
LOC: ATC 01:37
PROVIDERS: Family Medicine
DX: L40.59 Other psoriatic arthropathy (principal); I10 Essential (primary) hypertension; E03.9 Hypothyroidism, unspecified; E78.5 Hyperlipidemia, unspecified; M81.0 Age-related osteoporosis without current pathological fracture; M17.0 Bilateral primary osteoarthritis of knee; Z79.899 Other long term (current) drug therapy; Z88.8 Allergy status to other drugs, medicaments and biological substances; Z91.018 Allergy to other foods
CPT/HCPCS: 80053; 85025; 96413; 96415; J7050; Q5103

== ENCOUNTER 2024-05-06 01:09 | Day surgery (SDC) | payer MEDICARE, OTHER ==
[2024-05-06] MEDS ORDERED: Infliximab-DYYB 400 MG in NS 250 ML IV SCH (06:00)
[2024-05-06 14:00] VITALS: BP 114/73
[2024-05-06 14:45] LABS: BASOPHILS ABSOLUTE AUTO 0.07 K/mm3 (0.00-0.23); BASOPHILS PERCENT AUTO 1 % (0-2); EOSINOPHILS ABSOLUTE AUTO 0.13 K/mm3 (0.00-0.68); EOSINOPHILS PERCENT AUTO 2 % (0-6); Hemoglobin 15.9 g/dL (11.5-16.0); IMMATURE GRAN ABSOLUTE AUTO 0.02 K/mm3 (0.00-0.10); IMMATURE GRAN PERCENT AUTO 0 % (0-1); LYMPHOCYTES ABSOLUTE AUTO 2.43 K/mm3 (0.84-5.20); LYMPHOCYTES PERCENT AUTO 35 % (21-46); MONOCYTES ABSOLUTE AUTO 0.81 K/mm3 (0.16-1.47); MONOCYTES PERCENT AUTO 12 % (4-13); Mean Corpuscular HGB 29.6 pg (26.0-34.0); Mean Corpuscular HGB Conc 32.4 g/dL (31.5-36.5); Mean Corpuscular Volume 91 fL (80-100); Mean Platelet Volume 10.1 fL (9.1-12.4); NEUTROPHILS ABSOLUTE AUTO 3.43 K/mm3 (1.96-9.15); NEUTROPHILS PERCENT AUTO 50 % (41-73); Platelet Count 178 K/mm3 (150-400); RDW Coefficient Variation 14.9 % (11.7-14.2); RDW Standard Deviation 50.1 fL (35.1-46.3); Red Blood Cell Count 5.38 M/mm3 (3.80-5.20); White Blood Cell Count 6.89 K/mm3 (4.00-11.30)
[2024-05-06 15:01] LABS: Albumin, Blood 3.5 g/dL (3.4-5.0); Albumin/Globulin Ratio 1.1 (0.8-1.8); Bun/Creatinine Ratio 26.3 (12.0-20.0); Calcium, Blood 8.7 mg/dL (8.5-10.1); Creatinine, Blood 0.95 mg/dL (0.40-1.00); Globulin, Blood 3.1 g/dL (2.2-4.0); Potassium, Blood 4.5 mmol/L (3.5-5.5); Total Protein, Blood 6.6 g/dL (6.4-8.2)
== END 2024-05-06 16:43 | disposition home or self-care (01) ==
LOC: ATC 01:09
PROVIDERS: Family Medicine
DX: L40.59 Other psoriatic arthropathy (principal); E78.5 Hyperlipidemia, unspecified; M81.0 Age-related osteoporosis without current pathological fracture; E03.9 Hypothyroidism, unspecified; M17.0 Bilateral primary osteoarthritis of knee; Z79.899 Other long term (current) drug therapy; Z91.018 Allergy to other foods; Z88.8 Allergy status to other drugs, medicaments and biological substances; Z90.49 Acquired absence of other specified parts of digestive tract
CPT/HCPCS: 80053; 85025; 96413; 96415; J7050; Q5103

== ENCOUNTER 2024-05-15 10:54 | Emergency (ER) | payer MEDICARE, OTHER ==
[~2024-05-15] VITALS: Ht 162.6 cm; Wt 74.8 kg
[2024-05-15 10:54] VITALS: BP 127/60
[2024-05-15] MEDS ORDERED: Ondansetron HCl 2 MG / ML 2ML Vial IV ONE (11:30)
[2024-05-15] MEDS ORDERED: NS 1,000 ML IV SCH (11:30)
[2024-05-15 12:36] LABS: BASOPHILS ABSOLUTE AUTO 0.02 K/mm3 (0.00-0.23); BASOPHILS PERCENT AUTO 0 % (0-2); EOSINOPHILS ABSOLUTE AUTO 0.06 K/mm3 (0.00-0.68); EOSINOPHILS PERCENT AUTO 1 % (0-6); Hematocrit 47.6 % (33.0-51.0); Hemoglobin 15.5 g/dL (11.5-16.0); IMMATURE GRAN ABSOLUTE AUTO 0.02 K/mm3 (0.00-0.10); IMMATURE GRAN PERCENT AUTO 0 % (0-1); LYMPHOCYTES ABSOLUTE AUTO 2.32 K/mm3 (0.84-5.20); LYMPHOCYTES PERCENT AUTO 39 % (21-46); MONOCYTES ABSOLUTE AUTO 0.48 K/mm3 (0.16-1.47); MONOCYTES PERCENT AUTO 8 % (4-13); Mean Corpuscular HGB 29.5 pg (26.0-34.0); Mean Corpuscular HGB Conc 32.6 g/dL (31.5-36.5); Mean Corpuscular Volume 91 fL (80-100); Mean Platelet Volume 10.2 fL (9.1-12.4); NEUTROPHILS ABSOLUTE AUTO 3.12 K/mm3 (1.96-9.15); NEUTROPHILS PERCENT AUTO 52 % (41-73); Platelet Count 167 K/mm3 (150-400); RDW Coefficient Variation 14.5 % (11.7-14.2); RDW Standard Deviation 48.6 fL (35.1-46.3); Red Blood Cell Count 5.26 M/mm3 (3.80-5.20); White Blood Cell Count 6.02 K/mm3 (4.00-11.30)
[2024-05-15 12:51] LABS: Albumin, Blood 3.2 g/dL (3.4-5.0); Albumin/Globulin Ratio 1.2 (0.8-1.8); Bun/Creatinine Ratio 22.8 (12.0-20.0); Calcium, Blood 8.1 mg/dL (8.5-10.1); Creatinine, Blood 0.96 mg/dL (0.40-1.00); Globulin, Blood 2.7 g/dL (2.2-4.0); Magnesium, Blood 1.9 mg/dL (1.6-2.4); Potassium, Blood 3.8 mmol/L (3.5-5.5); Total Protein, Blood 5.9 g/dL (6.4-8.2)
[2024-05-15] MEDS ORDERED: ONDA4ODT MM (15:01)
== END 2024-05-15 15:26 | disposition other institution (70) ==
LOC: ER 10:54
PROVIDERS: Emergency Medicine
DX: A08.4 Viral intestinal infection, unspecified (principal); Z88.8 Allergy status to other drugs, medicaments and biological substances; Z79.51 Long term (current) use of inhaled steroids; Z79.899 Other long term (current) drug therapy; Z79.2 Long term (current) use of antibiotics; Z79.890 Hormone replacement therapy; Z79.52 Long term (current) use of systemic steroids; Z79.1 Long term (current) use of non-steroidal anti-inflammatories (NSAID); Z79.83 Long term (current) use of bisphosphonates; Z79.01 Long term (current) use of anticoagulants; Z16.23 Resistance to quinolones and fluoroquinolones; Z79.02 Long term (current) use of antithrombotics/antiplatelets; Z79.891 Long term (current) use of opiate analgesic
CPT/HCPCS: 74177; 80053; 83605; 83690; 83735; 85025; 93005; 93010; 99284-25; J2405; J7030; Q9967

== ENCOUNTER 2024-07-01 03:30 | Day surgery (SDC) | payer MEDICARE, OTHER ==
[~2024-07-01] VITALS: Wt 72.1 kg
[~2024-07-01 03:30] MED LIST changes: +ONDA4ODT MM
[2024-07-01] MEDS ORDERED: Infliximab-DYYB 400 MG in NS 250 ML IV SCH (06:00)
[2024-07-01 14:21] VITALS: BP 90/61
[2024-07-01 15:04] LABS: BASOPHILS ABSOLUTE AUTO 0.04 K/mm3 (0.00-0.23); BASOPHILS PERCENT AUTO 1 % (0-2); EOSINOPHILS ABSOLUTE AUTO 0.12 K/mm3 (0.00-0.68); EOSINOPHILS PERCENT AUTO 2 % (0-6); Hematocrit 44.2 % (33.0-51.0); Hemoglobin 14.2 g/dL (11.5-16.0); IMMATURE GRAN ABSOLUTE AUTO 0.01 K/mm3 (0.00-0.10); IMMATURE GRAN PERCENT AUTO 0 % (0-1); LYMPHOCYTES ABSOLUTE AUTO 2.22 K/mm3 (0.84-5.20); LYMPHOCYTES PERCENT AUTO 39 % (21-46); MONOCYTES ABSOLUTE AUTO 0.64 K/mm3 (0.16-1.47); MONOCYTES PERCENT AUTO 11 % (4-13); Mean Corpuscular HGB 29.5 pg (26.0-34.0); Mean Corpuscular HGB Conc 32.1 g/dL (31.5-36.5); Mean Corpuscular Volume 92 fL (80-100); Mean Platelet Volume 10.1 fL (9.1-12.4); NEUTROPHILS ABSOLUTE AUTO 2.65 K/mm3 (1.96-9.15); NEUTROPHILS PERCENT AUTO 47 % (41-73); Platelet Count 161 K/mm3 (150-400); RDW Coefficient Variation 14.8 % (11.7-14.2); RDW Standard Deviation 49.9 fL (35.1-46.3); Red Blood Cell Count 4.82 M/mm3 (3.80-5.20); White Blood Cell Count 5.68 K/mm3 (4.00-11.30)
[2024-07-01 15:26] LABS: Albumin, Blood 3.1 g/dL (3.4-5.0); Albumin/Globulin Ratio 1.1 (0.8-1.8); Bun/Creatinine Ratio 22.5 (12.0-20.0); Calcium, Blood 8.8 mg/dL (8.5-10.1); Creatinine, Blood 0.89 mg/dL (0.40-1.00); Globulin, Blood 2.7 g/dL (2.2-4.0); Potassium, Blood 4.4 mmol/L (3.5-5.5); Total Protein, Blood 5.8 g/dL (6.4-8.2)
== END 2024-07-01 15:24 | disposition home or self-care (01) ==
LOC: ATC 03:30
PROVIDERS: Family Medicine
DX: L40.59 Other psoriatic arthropathy (principal); E78.49 Other hyperlipidemia; M81.0 Age-related osteoporosis without current pathological fracture; I10 Essential (primary) hypertension; E03.9 Hypothyroidism, unspecified
CPT/HCPCS: 80053; 85025; 96413; J7050; Q5103

== ENCOUNTER → 2024-10-07 | Outpatient (CLI) | payer MEDICARE, OTHER ==
[~2024-10-07] MED LIST changes: +IBUP600 PO
== END ==
LOC: LAB 16:06 → LAB SHORT 16:06
DX: N39.0 Urinary tract infection, site not specified (principal)
CPT/HCPCS: 87086

== ENCOUNTER 2024-10-21 05:04 | Day surgery (SDC) | payer MEDICARE, OTHER ==
[2024-10-21 14:15] VITALS: BP 110/48
[2024-10-21 14:37] LABS: BASOPHILS ABSOLUTE AUTO 0.04 K/mm3 (0.00-0.23); BASOPHILS PERCENT AUTO 1 % (0-2); EOSINOPHILS ABSOLUTE AUTO 0.13 K/mm3 (0.00-0.68); EOSINOPHILS PERCENT AUTO 3 % (0-6); Hematocrit 38.3 % (33.0-51.0); Hemoglobin 12.4 g/dL (11.5-16.0); IMMATURE GRAN ABSOLUTE AUTO 0.01 K/mm3 (0.00-0.10); IMMATURE GRAN PERCENT AUTO 0 % (0-1); LYMPHOCYTES ABSOLUTE AUTO 1.49 K/mm3 (0.84-5.20); LYMPHOCYTES PERCENT AUTO 36 % (21-46); MONOCYTES ABSOLUTE AUTO 0.51 K/mm3 (0.16-1.47); MONOCYTES PERCENT AUTO 12 % (4-13); Mean Corpuscular HGB Conc 32.4 g/dL (31.5-36.5); Mean Corpuscular Volume 93 fL (80-100); NEUTROPHILS ABSOLUTE AUTO 2.02 K/mm3 (1.96-9.15); NEUTROPHILS PERCENT AUTO 48 % (41-73); NRBC ABSOLUTE 0.00 K/mm3 (0.00-0.02); NRBC Auto 0.0 /100 WBC (0.0-0.2); Platelet Count 137 K/mm3 (150-400); RDW Coefficient Variation 14.6 % (11.7-14.2); RDW Standard Deviation 49.6 fL (35.1-46.3)
[2024-10-21 15:13] LABS: Alanine Aminotransfer (ALT/SGP 20.0 U/L (12-78); Albumin, Blood 2.3 g/dL (3.4-5.0); Albumin/Globulin Ratio 1.1 (0.8-1.8); Anion Gap 1.0 mmol/L (3-11); Aspartate Aminotrans (AST/SGOT 19.0 U/L (12-37); Bilirubin, Total 1.1 mg/dL (0.1-1.0); Blood Urea Nitrogen 18.0 mg/dL (8-24); CO2, Blood 26.0 mmol/L (21-32); Calcium, Blood 6.8 mg/dL (8.5-10.1); Chloride, Blood 116.0 mmol/L (98-108); Creatinine, Blood 0.75 mg/dL (0.40-1.00); Globulin, Blood 2.1 g/dL (2.2-4.0); Glucose, Blood 91.0 mg/dL (70-99); Potassium, Blood 3.3 mmol/L (3.5-5.5); Sodium, Blood 140.0 mmol/L (136-145); Total Protein, Blood 4.4 g/dL (6.4-8.2)
== END 2024-10-21 16:30 | disposition home or self-care (01) ==
LOC: ATC 05:04
PROVIDERS: Family Medicine
DX: L40.59 Other psoriatic arthropathy (principal); E78.49 Other hyperlipidemia; M81.0 Age-related osteoporosis without current pathological fracture; D51.0 Vitamin B12 deficiency anemia due to intrinsic factor deficiency; G47.00 Insomnia, unspecified; C50.912 Malignant neoplasm of unspecified site of left female breast; I10 Essential (primary) hypertension; E03.8 Other specified hypothyroidism; M47.26 Other spondylosis with radiculopathy, lumbar region; M16.0 Bilateral primary osteoarthritis of hip; M17.11 Unilateral primary osteoarthritis, right knee; Z86.711 Personal history of pulmonary embolism; Z86.718 Personal history of other venous thrombosis and embolism; Z17.0 Estrogen receptor positive status [ER+]; Z17.21 Progesterone receptor positive status; Z17.32 Human epidermal growth factor receptor 2 negative status; Z79.890 Hormone replacement therapy; Z79.899 Other long term (current) drug therapy; Z88.8 Allergy status to other drugs, medicaments and biological substances; Z91.018 Allergy to other foods; Z96.652 Presence of left artificial knee joint
CPT/HCPCS: 80053; 85025; 96413; 96415; J7050; Q5103

== ENCOUNTER → 2024-10-22 | Outpatient (CLI) | payer MEDICARE, OTHER | LOC: LAB 15:16 → LAB SHORT 15:16 | DX: N39.0 Urinary tract infection, site not specified (principal) | CPT/HCPCS: 87086 ==

== ENCOUNTER 2024-12-16 00:43 | Day surgery (SDC) | payer MEDICARE, OTHER ==
[2024-12-16 07:53] VITALS: BP 123/79
[2024-12-16 08:28] LABS: BASOPHILS ABSOLUTE AUTO 0.06 K/mm3 (0.00-0.23); BASOPHILS PERCENT AUTO 1 % (0-2); EOSINOPHILS ABSOLUTE AUTO 0.10 K/mm3 (0.00-0.68); EOSINOPHILS PERCENT AUTO 2 % (0-6); Hematocrit 48.1 % (33.0-51.0); Hemoglobin 15.3 g/dL (11.5-16.0); IMMATURE GRAN ABSOLUTE AUTO 0.02 K/mm3 (0.00-0.10); IMMATURE GRAN PERCENT AUTO 0 % (0-1); LYMPHOCYTES ABSOLUTE AUTO 1.94 K/mm3 (0.84-5.20); LYMPHOCYTES PERCENT AUTO 34 % (21-46); MONOCYTES ABSOLUTE AUTO 0.57 K/mm3 (0.16-1.47); MONOCYTES PERCENT AUTO 10 % (4-13); Mean Corpuscular HGB Conc 31.8 g/dL (31.5-36.5); Mean Corpuscular Volume 93 fL (80-100); NEUTROPHILS ABSOLUTE AUTO 2.95 K/mm3 (1.96-9.15); NEUTROPHILS PERCENT AUTO 52 % (41-73); NRBC ABSOLUTE 0.00 K/mm3 (0.00-0.02); NRBC Auto 0.0 /100 WBC (0.0-0.2); Platelet Count 170 K/mm3 (150-400); RDW Coefficient Variation 15.4 % (11.7-14.2); RDW Standard Deviation 53.1 fL (35.1-46.3)
[2024-12-16 08:52] LABS: Alanine Aminotransfer (ALT/SGP 27.0 U/L (12-78); Albumin, Blood 3.3 g/dL (3.4-5.0); Albumin/Globulin Ratio 1.1 (0.8-1.8); Anion Gap 8.0 mmol/L (3-11); Aspartate Aminotrans (AST/SGOT 27.0 U/L (12-37); Bilirubin, Total 1.6 mg/dL (0.1-1.0); Blood Urea Nitrogen 21.0 mg/dL (8-24); CO2, Blood 29.0 mmol/L (21-32); Calcium, Blood 8.7 mg/dL (8.5-10.1); Chloride, Blood 107.0 mmol/L (98-108); Creatinine, Blood 0.96 mg/dL (0.40-1.00); Globulin, Blood 2.9 g/dL (2.2-4.0); Glucose, Blood 109.0 mg/dL (70-99); Potassium, Blood 3.8 mmol/L (3.5-5.5); Sodium, Blood 140.0 mmol/L (136-145); Total Protein, Blood 6.2 g/dL (6.4-8.2)
== END 2024-12-16 10:48 | disposition home or self-care (01) ==
LOC: ATC 00:43
PROVIDERS: Family Medicine
DX: L40.59 Other psoriatic arthropathy (principal); L40.8 Other psoriasis; I10 Essential (primary) hypertension; E78.5 Hyperlipidemia, unspecified; M47.26 Other spondylosis with radiculopathy, lumbar region; M81.0 Age-related osteoporosis without current pathological fracture; M17.11 Unilateral primary osteoarthritis, right knee; M17.12 Unilateral primary osteoarthritis, left knee; M16.11 Unilateral primary osteoarthritis, right hip; E03.9 Hypothyroidism, unspecified; G47.00 Insomnia, unspecified; I48.91 Unspecified atrial fibrillation; Z79.890 Hormone replacement therapy; Z79.899 Other long term (current) drug therapy; Z91.018 Allergy to other foods; Z88.8 Allergy status to other drugs, medicaments and biological substances; Z90.49 Acquired absence of other specified parts of digestive tract
CPT/HCPCS: 80053; 85025; 96413; 96415; J7050; Q5103

== ENCOUNTER 2025-01-12 00:03 | Inpatient (IN) | payer MEDICARE, OTHER ==
[~2025-01-12] VITALS: Ht 165.1 cm; Wt 91.5 kg
[2025-01-12] VITALS (14 sets, daily range): BP systolic 78–125; BP diastolic 46–77
[2025-01-12] MEDS ORDERED: NS 500 ML IV SCH (00:25)
[2025-01-12 00:28] LABS: BASOPHILS ABSOLUTE AUTO 0.04 K/mm3 (0.00-0.23); BASOPHILS PERCENT AUTO 0 % (0-2); EOSINOPHILS ABSOLUTE AUTO 0.00 K/mm3 (0.00-0.68); EOSINOPHILS PERCENT AUTO 0 % (0-6); Hematocrit 45.2 % (33.0-51.0); Hemoglobin 14.7 g/dL (11.5-16.0); IMMATURE GRAN ABSOLUTE AUTO 0.19 K/mm3 (0.00-0.10); IMMATURE GRAN PERCENT AUTO 1 % (0-1); LYMPHOCYTES ABSOLUTE AUTO 0.94 K/mm3 (0.84-5.20); LYMPHOCYTES PERCENT AUTO 6 % (21-46); MONOCYTES ABSOLUTE AUTO 1.43 K/mm3 (0.16-1.47); MONOCYTES PERCENT AUTO 9 % (4-13); Mean Corpuscular HGB Conc 32.5 g/dL (31.5-36.5); Mean Corpuscular Volume 89 fL (80-100); NEUTROPHILS ABSOLUTE AUTO 13.46 K/mm3 (1.96-9.15); NEUTROPHILS PERCENT AUTO 84 % (41-73); NRBC ABSOLUTE 0.00 K/mm3 (0.00-0.02); NRBC Auto 0.0 /100 WBC (0.0-0.2); Platelet Count 153 K/mm3 (150-400); RDW Coefficient Variation 15.3 % (11.7-14.2); RDW Standard Deviation 50.1 fL (35.1-46.3)
[2025-01-12] MEDS ORDERED: FentaNYL Citrate 50 MCG/ML 2 ML Injection IV ONE (00:45)
[2025-01-12] MEDS ORDERED: Morphine Sulfate 4 MG/1 ML Injection IV ONE ×2 (00:45→02:05)
[2025-01-12 01:20] LABS: Anion Gap 10.0 mmol/L (3-11); Blood Urea Nitrogen 24.0 mg/dL (8-24); CO2, Blood 24.0 mmol/L (21-32); Calcium, Blood 8.4 mg/dL (8.5-10.1); Chloride, Blood 107.0 mmol/L (98-108); Creatinine, Blood 0.96 mg/dL (0.40-1.00); Glucose, Blood 115.0 mg/dL (70-99); Magnesium, Blood 1.6 mg/dL (1.6-2.4); Potassium, Blood 4.2 mmol/L (3.5-5.5); Sodium, Blood 137.0 mmol/L (136-145); Thyroid Stimulating Hormone 5.06 uIU/mL (0.360-4.800)
[2025-01-12 01:35] LABS: Influenza A, PCR NEGATIVE (NEGATIVE); Influenza B, PCR NEGATIVE (NEGATIVE); Resp Syncytial Virus, PCR NEGATIVE (NEGATIVE)
[2025-01-12] MEDS ORDERED: Diltiazem HCl 5 MG / ML 5ML Vial IV ONE (01:55)
[2025-01-12 02:16] LABS: pH Blood Venous 7.34 (7.34-7.37)
[2025-01-12 02:33] LABS: SARS-Cov-2 (COVID-19) PCR, MMC POSITIVE (NEGATIVE)
[2025-01-12] MEDS ORDERED: OxyCODONE 5 mg/Acetamin 325 mg TABLET PO ONE (02:55)
[2025-01-12] MEDS ORDERED: Metoprolol Tartrate 1 MG/ML 5 ML VIAL IV PRN (03:50)
[2025-01-12] MEDS ORDERED: FentaNYL Citrate 50 MCG/ML 2 ML Injection IV PRN (03:55)
[2025-01-12] MEDS ORDERED: FLU VACC TS2025(65UP)/MF59C/PF 45 MCG/0.5 ML SYRINGE IM SCH (03:55)
[2025-01-12] MEDS ORDERED: Naloxone HCl 0.4MG / ML 1ML Vial IV PRN (03:55)
[2025-01-12] MEDS ORDERED: CefTRIAXone Sodium 1,000 MG in NS 100 ML IV SCH (04:00)
[2025-01-12] MEDS ORDERED: Mag Sulfate 1 GM/D5% 100ML 100 ML IV STA (04:01)
[2025-01-12] MEDS ORDERED: Remdesivir (EUA) 200 MG in NS 250 ML IV ONE (04:05)
[2025-01-12 05:09] LABS: BASOPHILS ABSOLUTE AUTO 0.06 K/mm3 (0.00-0.23); BASOPHILS PERCENT AUTO 0 % (0-2); EOSINOPHILS ABSOLUTE AUTO 0.01 K/mm3 (0.00-0.68); EOSINOPHILS PERCENT AUTO 0 % (0-6); Hematocrit 43.6 % (33.0-51.0); Hemoglobin 14.2 g/dL (11.5-16.0); IMMATURE GRAN ABSOLUTE AUTO 0.54 K/mm3 (0.00-0.10); IMMATURE GRAN PERCENT AUTO 3 % (0-1); LYMPHOCYTES ABSOLUTE AUTO 1.01 K/mm3 (0.84-5.20); LYMPHOCYTES PERCENT AUTO 6 % (21-46); MONOCYTES ABSOLUTE AUTO 1.41 K/mm3 (0.16-1.47); MONOCYTES PERCENT AUTO 8 % (4-13); Mean Corpuscular HGB Conc 32.6 g/dL (31.5-36.5); Mean Corpuscular Volume 88 fL (80-100); NEUTROPHILS ABSOLUTE AUTO 14.81 K/mm3 (1.96-9.15); NEUTROPHILS PERCENT AUTO 83 % (41-73); NRBC ABSOLUTE 0.00 K/mm3 (0.00-0.02); NRBC Auto 0.0 /100 WBC (0.0-0.2); RDW Coefficient Variation 15.2 % (11.7-14.2); RDW Standard Deviation 48.9 fL (35.1-46.3)
[2025-01-12 05:14] LABS: Prothrombin Time Results 14.6 Sec (9.7-11.5)
[2025-01-12 05:38] LABS: Alanine Aminotransfer (ALT/SGP 22.0 U/L (12-78); Albumin, Blood 2.9 g/dL (3.4-5.0); Albumin/Globulin Ratio 1.1 (0.8-1.8); Anion Gap 10.0 mmol/L (3-11); Aspartate Aminotrans (AST/SGOT 26.0 U/L (12-37); Bilirubin, Total 2.8 mg/dL (0.1-1.0); Blood Urea Nitrogen 23.0 mg/dL (8-24); CO2, Blood 24.0 mmol/L (21-32); Calcium, Blood 8.0 mg/dL (8.5-10.1); Chloride, Blood 106.0 mmol/L (98-108); Creatinine, Blood 0.86 mg/dL (0.40-1.00); Globulin, Blood 2.7 g/dL (2.2-4.0); Glucose, Blood 112.0 mg/dL (70-99); Potassium, Blood 3.9 mmol/L (3.5-5.5); Sodium, Blood 136.0 mmol/L (136-145); Total Protein, Blood 5.6 g/dL (6.4-8.2)
[2025-01-12] MEDS ORDERED: NS 250 ML IV ONE ×2 (06:25→06:50)
[2025-01-12] MEDS ORDERED: NS 500 ML IV ONE (06:26)
--- NOTE | 2025-01-12 07:23 | NUR ---
ASSUMPTION OF CARE PT ARRIVED TO PCU FROM ER AT APPROXIMATELY 0604. PT A&O X4, ABLE TO MAKE NEEDS KNOWN, ALTHOUGH FORGETFUL AT TIMES. AFEBRILE, SPO2 >92% ON 2L NC. SOFT BP WITH SYSTOLIC 70 S-80 S. TOTAL OF 500ML FLUID BOLUS GIVEN PER DR. GLASS. SHE DENIES SOB OR CP. PT CONTINUES TO BE QUITE PAINFUL OF HER COCCYX AREA. MEPILEX PLACED AND PT REPOSITIONED. REPORT GIVEN TO CHACHA GARZON. CARE CONTINUES.
[2025-01-12] MEDS ORDERED: Ondansetron HCl 2 MG / ML 2ML Vial IV STA (08:07)
--- NOTE | 2025-01-12 08:07 | NUR ---
Pt c/o feeling very nauseated this morning after her meal tray arrived. Pt unable to eat. She is c/o pain on her bottom, which is is very bruised in a large area. Denies hx falls, states spends most of her time in her chair at home. [place] [facility] [place] staff assist to stand and pivot transfer. Heart rate was 102-108 at rest, up to 138-142 with that activity, on 5 l/min O2. Back in bed and at rest oxygen was titrated down to 2 l/min and heart rate has normalized. Called Dr. Quiros for antiemetic order as the pt is asking for pain medication and is still c/o nausea. No answer, message was left on voice mail.
--- NOTE | 2025-01-12 08:11 | NUR ---
order received for Emigdio.
--- NOTE | 2025-01-12 08:22 | NUR ---
Repositioned to her right side after pain med administration.
--- NOTE | 2025-01-12 08:44 | NUR ---
Pt weaned down to room air. spo2 100% on room air while awake. Heart rhythmm has been atrial fibrillation, 102-108 at rest.
[2025-01-12] MEDS ORDERED: Ondansetron HCl 2 MG / ML 2ML Vial IV PRN (09:00)
[2025-01-12] MEDS ORDERED: Enoxaparin 40 MG/0.4 ML SYR SC SCH (09:00)
[2025-01-12] MEDS ORDERED: Lactobacil 2-S.Thermo-Bifido 1 1 Cap PO SCH (09:00)
[2025-01-12] MEDS ORDERED: TRAZ150T57 PO (09:36)
[2025-01-12] MEDS ORDERED: LACT10SY PO (09:37)
--- NOTE | 2025-01-12 10:15 | NUR ---
Pt spo2 dropped to 82% while falling asleep, lying on her right side. Reapplied O2 at 2 l/min and spo2 improved to 92%. Reji at bedside. Pt heart rate [address] Quiros was called for home med orders. Pt takes atenolol 25 mg daily at baseline. Pt was repositioned again to right side lying, with waffle pad underneath her lowerback to upper thighs to provide relief to her very sore buttocks.
--- NOTE | 2025-01-12 10:29 | NUR ---
Primary RN to give lopressor IV push for heart rate, as well as tylenol for general malaise. B/P 125/77, 96% spo2 on 2 l/min, HR 125, RR 12/min, lying down HOB elevated 25 degrees and no respiratory distress.
[2025-01-12] MEDS ORDERED: Polyethylene Glycol 3350 17 gm PO PRN (10:45)
--- NOTE | 2025-01-12 11:28 | NUR ---
Heart rate 109-115 bpm, a fib at this time. Atenolol held until blood pressure is within parameters.
--- NOTE | 2025-01-12 15:23 | NUR ---
Straight cath per protocol due to urinary retention. Pt had painful red labia and states "bathroom problems" and "my doctor prescribed a cream and I don't know what it was for". States she has to urinate at night but sometimes just dribbles. Called Dr. Quiros; zinc barrier cream ordered and no UA at this time.
[2025-01-12] MEDS ORDERED: ZINC OXIDE/PETROLATUM, YELLOW 1 APPLIC/71 GM PASTE TOP PRN (15:30)
[2025-01-12] MEDS ORDERED: Digoxin 0.5 MG in NS 8 ML IV ONE (16:15)
--- NOTE | 2025-01-12 17:16 | NUR ---
SHIFT SUMMARY: PT A/O X4, ABLE TO MAKE NEEDS KNOWN. ALL STRENGTH EQUAL BILATERALLY. GENERALIZED WEAKNESS. PT C/O CHRONIC BACK PAIN 11/11, MEDICATED PER EMAR AND REPOSITIONED THROUGHOUT DAY. AFIB 100-110s, DENIES CHEST PAIN/PRESSURE/DIZZINESS. GAVE PT IV DIGOXIN AT APPROX 1600 PER EMAR FOR RATE CONTROL, REMAINS IN 100s. 2L NC, SATS >95%, DENIES SOB. MAP >65, SOFT <65 AT TIMES. ENCOURAGING FLUIDS. BLADDER SCAN SHOWED >400 ML THIS AFTERNOON, STRAIGHT CATHED PT FOR AN OUTPUT OF 400ML. PT HAS BRUISING ON BUTTOCKS FOR UNKNOWN REASON, REPORTS NO FALLS.SEE PHOTOS IN CHART. REDNESS/WHITE DISCHARGE NOTED IN VAGINAL CANAL, MD MADE AWARE. ZINC OXIDE OITMENT ORDERED PER MD. PT CURRENTLY LYING IN BED, CALL WITHIN REACH. AT BEDSIDE. WILL REPORT TO ONCOMING RN.
--- NOTE | 2025-01-12 17:23 | NUR ---
Photo documentation completed for deep purple large area of bruising on bilateral buttocks and hips. Pt and state that she has spent the vast majority of her time in the recliner for the past 9 years, since her back surgery and subsequent infection which kept her hospitalized for 6 months. Pt states that she sleeps in it and stays in it all day long. Today the patient has been turned and repositioned frequently, more than every 1-2 hours for comfort and also to prevent further break down of her skin. Given oxycodone twice, once this morning and once this evening for her chronic back pain. has been at the bedside off and on for most of the day. Pt had very little appetite today. Encouraging PO fluids. Heart rate has been better controlled, in around 92-99 bpm this evening after restarting her atenolol and also starting a digoxin IV loading. B/P has been stable. Oxygen requirements 1-2 l/min depending on if she is sleeping or not. She has needed the oxygen more while sleeping. RR has been WNL, around 12 /min. No cough. No dyspnea.
[2025-01-13] VITALS (37 sets, daily range): BP systolic 59–118; BP diastolic 37–75
[2025-01-13 05:03] LABS: Anion Gap 11 mmol/L (3-11); Blood Urea Nitrogen 29 mg/dL (8-24); CO2, Blood 21 mmol/L (21-32); Calcium, Blood 8.1 mg/dL (8.5-10.1); Chloride, Blood 107 mmol/L (98-108); Creatinine, Blood 1.30 mg/dL (0.40-1.00); Glucose, Blood 101 mg/dL (70-99); Magnesium, Blood 2.0 mg/dL (1.6-2.4); Phosphorus, Blood 3.3 mg/dL (2.5-4.9); Potassium, Blood 4.3 mmol/L (3.5-5.5); Sodium, Blood 135 mmol/L (136-145)
--- NOTE | 2025-01-13 05:11 | NUR ---
SHIFT SUMMARY PT A&O X4, ABLE TO MAKE NEEDS KNOWN. VSS, AFEBRILE. BP CONTINUES TO BE SOFT WITH MAP >65. SPO2 >90% ON 1-2L NC WHILE ASLEEP. PT HAS COMPLAINT OF SEVERE PAIN OF BACK/ BUTTOCK AREA. SHE WAS REPOSITIONED FREQUENTLY WITH LITTLE RELIEF. PAIN ALSO MEDICATED PER EMAR. PT WITH NO URINE OUTPUT THIS SHIFT. BLADDER SCAN WITH 10ML YESTERDAY EVENING AND 76ML THIS AM. SHE DENIES FEELING THE URGE TO URINATE. MD WOULD LIKE TO CONTINUE TO MONITOR AND PUSH FLUIDS AT THIS TIME. BED IN LOWEST POSITION, CALL LIGHT IN REACH, BREATHING EVEN AND UNLABORED.
--- NOTE | 2025-01-13 08:04 | NUR ---
Per noc shift report, the pt was weaned down to 1 l/min O2 overnight. Medicated for her chronic pain with oxycodone twice. Pt had no urine output overnight, and bladder scan twice revealed less than 100 cc urine in bladder per report. The pt has no IV fluids infusing and minimal po intake. Labs this morning concerning for worsening kidney function. Noc RN reported noc hospitalist had not given any new orders. Pt is awake and alert this morning, sitting up eating breakfast. Encouraged PO intake. Provided ice water and jello at pt request.
[2025-01-13] MEDS ORDERED: NS 1,000 ML IV SCH ×2 (08:40→14:00)
--- NOTE | 2025-01-13 11:33 | NUR ---
LING UNAVALIABLE AT THIS TIME
[2025-01-13] MEDS ORDERED: Remdesivir (EUA) 100 MG in NS 250 ML IV SCH (12:00)
--- NOTE | 2025-01-13 13:59 | NUR ---
BEd bath done, then assisted up to sit on side of bed. Pt is very painful and has to move extremely slowly due to her chronic back pain. 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 She is able to transfer and move short distances with a walker at home, but is never able to stand fully erect. She transfered with 2 person max assist using gait belt and geriwalker. Now up in recliner.
[2025-01-13] MEDS ORDERED: NS 1,000 ML IV ONE (14:01)
--- NOTE | 2025-01-13 15:53 | NUR ---
REpositioned in the recliner chair. Pt stood three times, took a couple of small steps while holding the geriwalker. She is very weak and could not stand for more than a couple of minutes. Repositioned in the recliner with a new pillow under her bottom, as well as the waffle inflatable cushion she has already been sitting on.
[2025-01-13] MEDS ORDERED: NS 500 ML IV ONE ×3 (16:45→20:20)
--- NOTE | 2025-01-13 16:58 | NUR ---
1600 Pt was tired of being in the chair. 2 person max assist with gait belt to stand pivot transfer to the bed. Repositioned to her right side. Blood pressures are low, cycling on auto every 15-30 minutes. Gave midodrine per orders and 500 cc NS bolus is infusing via midline IV in the ASHLEIGH. Pt states that her comfort level is good at this time.
[2025-01-13 16:59] LABS: BASOPHILS ABSOLUTE AUTO 0.03 K/mm3 (0.00-0.23); BASOPHILS PERCENT AUTO 0 % (0-2); EOSINOPHILS ABSOLUTE AUTO 0.02 K/mm3 (0.00-0.68); EOSINOPHILS PERCENT AUTO 0 % (0-6); Hematocrit 41.6 % (33.0-51.0); Hemoglobin 13.6 g/dL (11.5-16.0); IMMATURE GRAN ABSOLUTE AUTO 0.17 K/mm3 (0.00-0.10); IMMATURE GRAN PERCENT AUTO 1 % (0-1); LYMPHOCYTES ABSOLUTE AUTO 1.59 K/mm3 (0.84-5.20); LYMPHOCYTES PERCENT AUTO 12 % (21-46); MONOCYTES ABSOLUTE AUTO 1.17 K/mm3 (0.16-1.47); MONOCYTES PERCENT AUTO 9 % (4-13); Mean Corpuscular HGB Conc 32.7 g/dL (31.5-36.5); Mean Corpuscular Volume 89 fL (80-100); NEUTROPHILS ABSOLUTE AUTO 10.46 K/mm3 (1.96-9.15); NEUTROPHILS PERCENT AUTO 78 % (41-73); NRBC ABSOLUTE 0.00 K/mm3 (0.00-0.02); NRBC Auto 0.0 /100 WBC (0.0-0.2); Platelet Count 104 K/mm3 (150-400); RDW Coefficient Variation 15.3 % (11.7-14.2); RDW Standard Deviation 50.1 fL (35.1-46.3)
[2025-01-13 17:27] LABS: Alanine Aminotransfer (ALT/SGP 26.0 U/L (12-78); Albumin, Blood 2.8 g/dL (3.4-5.0); Albumin/Globulin Ratio 1.0 (0.8-1.8); Anion Gap 8.0 mmol/L (3-11); Aspartate Aminotrans (AST/SGOT 35.0 U/L (12-37); Bilirubin, Direct 0.5 mg/dL (0.0-0.3); Bilirubin, Indirect 0.7 mg/dL (0.1-0.7); Bilirubin, Total 1.2 mg/dL (0.1-1.0); Blood Urea Nitrogen 36.0 mg/dL (8-24); CO2, Blood 24.0 mmol/L (21-32); Calcium, Blood 8.0 mg/dL (8.5-10.1); Chloride, Blood 107.0 mmol/L (98-108); Creatinine, Blood 1.41 mg/dL (0.40-1.00); Globulin, Blood 2.8 g/dL (2.2-4.0); Glucose, Blood 116.0 mg/dL (70-99); Magnesium, Blood 2.1 mg/dL (1.6-2.4); Phosphorus, Blood 3.1 mg/dL (2.5-4.9); Potassium, Blood 4.3 mmol/L (3.5-5.5); Sodium, Blood 135.0 mmol/L (136-145); Total Protein, Blood 5.6 g/dL (6.4-8.2)
--- NOTE | 2025-01-13 17:46 | NUR ---
Natalie BURNHAM called Dr. Quiros about pt's persistent low blood pressure despite midodrine and 500 cc bolus an hour ago.
--- NOTE | 2025-01-13 18:16 | NUR ---
Pt b/p is improving. She had a small amount of jaya incontinent urine. heart rate afib 91 bpm. RR 12, occasional moist cough. While awake spo2 92-95% on room air, and lung sounds are clear. When she falls asleep needs 1 l/min of O2 to keep spo2 greater than 89%. Second 500cc NS bolus is completing. Pt given hygiene care, changed attends and applied purewick for accurate I&O. pt is taking po water ad yael. Repositioned from right side lying to left side lying.
--- NOTE | 2025-01-13 21:09 | NUR ---
ASSUMED CARE OF PT AT 1900. PT HAS BEEN HAVING LOW BP TODAY AND RECIEVED 1000ML BOLUS AND 5 OF MIDODRINE. PT REMAINS HYPOTENSIVE AND IS VERY DROWSY. ABLE TO WAKE UP AND FOLLOW COMMANDS BUT IMMEDIATLY GOES BACK TO SLEEP. MD NOTIFIED AND CAME TO SEE PT AT BEDSIDE. ORDERS RECIEVED FOR AN ADDITIONAL 500ML BOLUS AND IF BP DOESNT CHANGE FOR PT TO UPGRADE TO ICU. BP REMAIN LOW WITH A MAP IN THE 50S. TRANSFER ORDERS PLACED AND LEVOPHED ORDERED PER MD. SPOUSE CALLED AND UPDATED ON PTS ROOM CHANGE.
--- NOTE | 2025-01-13 22:13 | NUR ---
PT UPDATE: PT CAME TO ICU APPROXIMATELY 2140 TO CONTINUE LEVOPHED GTT. PT WAS ON 6MCG/MIN UPON TRANSFER. SHE HAD A NASAL CANNULA ON BUT ON ROOM AIR WITH SPO2 >92%. PT WAS ALERT AND ORIENTED APPROPRIATELY. SHE DENIED ANY NEW PAIN, NAUSEA, OR DIZZINESS AND DENIED SOB. ABLE TO MAKE NEEDS KNOWN.
[2025-01-14] VITALS (67 sets, daily range): BP systolic 56–120; BP diastolic 36–108
[2025-01-14 03:40] LABS: Hematocrit 42.9 % (33.0-51.0); Hemoglobin 13.8 g/dL (11.5-16.0); Mean Corpuscular HGB Conc 32.2 g/dL (31.5-36.5); Mean Corpuscular Volume 90 fL (80-100); NRBC ABSOLUTE 0.00 K/mm3 (0.00-0.02); NRBC Auto 0.0 /100 WBC (0.0-0.2); Platelet Count 117 K/mm3 (150-400); RDW Coefficient Variation 15.5 % (11.7-14.2); RDW Standard Deviation 51.1 fL (35.1-46.3)
[2025-01-14 04:02] LABS: Anion Gap 10.0 mmol/L (3-11); Blood Urea Nitrogen 37.0 mg/dL (8-24); CO2, Blood 22.0 mmol/L (21-32); Calcium, Blood 7.6 mg/dL (8.5-10.1); Chloride, Blood 108.0 mmol/L (98-108); Creatinine, Blood 1.22 mg/dL (0.40-1.00); Glucose, Blood 110.0 mg/dL (70-99); Potassium, Blood 4.2 mmol/L (3.5-5.5); Sodium, Blood 136.0 mmol/L (136-145)
--- NOTE | 2025-01-14 06:23 | NUR ---
SHIFT SUMMARY: PT HAS BEEN A&OX3 WITH SOME SIGNIFICANT TRANSIENT CONFUSION. CONCERNED FOR DELIRIUM, UNKNOWN WHAT HER BASELINE MENTATION IS. SHE HAS BEEN UNABLE TO SLEEP AT ALL THIS SHIFT. HER BREATHING WAS BEEN UNLABORED AND SHE DENIES DYSPNEA. SHE'S AFEBRILE. COMPLAINING OF HER CHRONIC PAIN AND BACK PAIN, WHICH IS WHAT SHE CAME IN FOR. HER BLOOD PRESSURE HAS BEEN LABILE AND SHE REMAINS ON LEVOPHED GTT. SHE HAS STAYED IN AFIB BUT RATE HAS BEEN <110. PT BEGINNING TO EXHIBIT SOME URINARY RETENTION, BLADDER SCAN SHOWS <400 BUT SHE IS NOT VOIDING, PUREWICK IN PLACE.
--- NOTE | 2025-01-14 16:00 | NUR ---
PT HAD NOT VOIDED SINCE STRAIGHT CATH THIS AM. BLADDER SCAN SHOWS 331 ML. PLACED KWON PER DR. BUI PT IS CRITICALLY ILL AND RETAINING.
[2025-01-14] MEDS ORDERED: Heparin Sodium 1000 Units/ML 10ML MDV ONE (19:10)
[2025-01-14] MEDS ORDERED: NS 500 ML IV ONE (19:10)
--- NOTE | 2025-01-14 19:15 | NUR ---
AT START OF SHIFT DR MALDONADO AND SARWAT RESEARCH LABORATORY MANAGER ARE AT PT BEDSIDE. PT IS BEING TAKEN TO HOSPITAL CLEANING SPECIALIST FOR TEMPORARY PACEMAKER PLACEMENT. PT WAS TAKEN DURING REPORT SO ASSESSMENT WAS NOT COMPLETE. DR MALDONADO CONSENTED PT VIA FAMILY. PT WILL BE TRANSFERRED TO ANOTHER FACILTIY FOR PERMANENT PACEMAKER PLACEMENT WHEN A BED IS AVAILABLE.
[2025-01-14] MEDS ORDERED: Midazolam HCl 1MG / ML 2ML Vial ONE (19:23)
[2025-01-14] MEDS ORDERED: FentaNYL Citrate 50 MCG/ML 2 ML Injection ONE (19:23)
--- NOTE | 2025-01-14 19:26 | NUR ---
SUMMARY PT WAS A/O X3 THIS AM TO PERSON, PLACE, AND TIME. IT IS GETTING DARK OUT PT IS LESS ORIENTED AND IS CONSTANTLY PULLING AND PICKING AT SHEETS. PT REMOVED 2 PERIPHERAL IV'S. STILL HAS PG TO ASHLEIGH. BP HAS BEEN DECREASING THE DAY GOES ON. SPOKE WITH DR. BUI ABOUT PT REMOVING IV'S AND NEED FOR LEVOPHED GTT, MIDODRINE ORDERED. PT TAKES PILLS WITHOUT ISSUE. THIS EVENING WHILE EATING DINNER PT HAD 2 PAUSES ON THE MONITOR. THE FIRST PAUSE DIDN'T PHASE HER, THE SECOND PAUSE PT DRIFTED IN AND OUT OF CONSCIOUSNESS BUT DID REGAIN THEN PICKS UP CONVERSATION AND EATING DINNER WHERE SHE HAD LEFT OFF. PADS AND ZOLL APPLIED. CALLED DR. BUI WHO CALLED DAYANNA LUNA SEMICONDUCTOR WAFERS SAW OPERATOR TO COME TO BEDSIDE. DR. MALDONADO WAS CONSULTED WELL AND TO PT'S BEDSIDE WITHIN MINUTES. FAMILY WAS CALLED AND DECISION WAS MADE TO TAKE PT FOR TEMP PACER. PT TAKEN TO INDUSTRIAL CHEMISTRY TEACHER A LITTLE AFTER 1900.
[2025-01-14 22:31] LABS: Anti-Xa UFH, PHA Monitoring <0.10 IU/mL; Prothrombin Time Results 14.0 Sec (9.7-11.5)
[2025-01-14] MEDS ORDERED: Dose Adjust by Pharmacy XX STA (22:57)
[2025-01-14] MEDS ORDERED: Heparin Sodium,Porcine/0.5 NS 500 ML IV SCH (23:00)
[2025-01-15] VITALS (72 sets, daily range): BP systolic 78–121; BP diastolic 46–85
--- NOTE | 2025-01-15 05:56 | NUR ---
SHIFT JERALD PT WAS TAKEN TO OFFICE SERVICES MANAGER AT THE BEGINNING OF MY SHIFT FOR TRANSVENOUS PACER PLACEMENT. UPON COMPLETION OF THE PROCEDURE SHE RETURNED TO THE ICU. SHE HAS NOT REQUIRED PACING THIS SHIFT. BP HAS BEEN WNL. SHE HAS DENIED ANY CHEST PAIN/PRESSURE. SHE HAS BEEN AFEBRILE. SHE IS ON ROOM AIR W/ OXYGEN SAT >90% W/ NO S/S OF RESP DISTRESS. KWON CATH INTACT PATENT AND DRAINING TO GRAVITY. SHE IS ORIENTED TO SELF ONLY. SHE IS IN AFIB AT THIS TIME. SHE HAS LIMITED IV ACCESS, MD IS AWARE. HEPARIN DRIP WAS STARTED LAST NIGHT, SEE [facility] FOR RATES.
[2025-01-15 07:16] LABS: BASOPHILS ABSOLUTE AUTO 0.03 K/mm3 (0.00-0.23); BASOPHILS PERCENT AUTO 0 % (0-2); EOSINOPHILS ABSOLUTE AUTO 0.11 K/mm3 (0.00-0.68); EOSINOPHILS PERCENT AUTO 1 % (0-6); Hematocrit 42.5 % (33.0-51.0); Hemoglobin 13.9 g/dL (11.5-16.0); IMMATURE GRAN ABSOLUTE AUTO 0.05 K/mm3 (0.00-0.10); IMMATURE GRAN PERCENT AUTO 1 % (0-1); LYMPHOCYTES ABSOLUTE AUTO 1.13 K/mm3 (0.84-5.20); LYMPHOCYTES PERCENT AUTO 13 % (21-46); MONOCYTES ABSOLUTE AUTO 0.92 K/mm3 (0.16-1.47); MONOCYTES PERCENT AUTO 10 % (4-13); Mean Corpuscular HGB Conc 32.7 g/dL (31.5-36.5); Mean Corpuscular Volume 88 fL (80-100); NEUTROPHILS ABSOLUTE AUTO 6.66 K/mm3 (1.96-9.15); NEUTROPHILS PERCENT AUTO 75 % (41-73); NRBC ABSOLUTE 0.00 K/mm3 (0.00-0.02); NRBC Auto 0.0 /100 WBC (0.0-0.2); Platelet Count 107 K/mm3 (150-400); RDW Coefficient Variation 15.6 % (11.7-14.2); RDW Standard Deviation 50.3 fL (35.1-46.3)
[2025-01-15 07:36] LABS: Alanine Aminotransfer (ALT/SGP 25.0 U/L (12-78); Albumin, Blood 2.6 g/dL (3.4-5.0); Albumin/Globulin Ratio 0.9 (0.8-1.8); Anion Gap 12.0 mmol/L (3-11); Aspartate Aminotrans (AST/SGOT 26.0 U/L (12-37); Bilirubin, Total 0.9 mg/dL (0.1-1.0); Blood Urea Nitrogen 35.0 mg/dL (8-24); CO2, Blood 21.0 mmol/L (21-32); Calcium, Blood 8.3 mg/dL (8.5-10.1); Chloride, Blood 109.0 mmol/L (98-108); Creatinine, Blood 0.96 mg/dL (0.40-1.00); Globulin, Blood 2.9 g/dL (2.2-4.0); Glucose, Blood 106.0 mg/dL (70-99); Magnesium, Blood 1.9 mg/dL (1.6-2.4); Potassium, Blood 4.0 mmol/L (3.5-5.5); Sodium, Blood 138.0 mmol/L (136-145); Total Protein, Blood 5.5 g/dL (6.4-8.2)
--- NOTE | 2025-01-15 07:54 | NUR ---
[place] of Care: Care assumed at 0700hr. Patient alert and oriented to self, place, and date. Confused to reason for admission. VSS, spO2 94-95% on RA. Denies dyspnea/SOB. Appears calm and comfortable at rest. Denies pain, but moans/groans with repositioning. Scheduled Tylenol given this morning, will monitor for effect. Temp-pacer in place to RT IJ, dressing intact. Back-up rate to pacer set at 50 bpm, but intrinsic HR shows A-fibb in 80's-90's. No back-up pacing required throughout NOC per NOC RN. Xiong cath patent and intact, draining clear, dark yellow urine. Bilateral soft wrist restraints removed this morning (placed last NOC r/t pulling at temp-pacer). Patient reminded/instructed multiple times to not pull at any lines, tubes, cords.
[2025-01-15] MEDS ORDERED: Dose Adjust by Pharmacy XX STA (07:57)
[2025-01-15] MEDS ORDERED: Enoxaparin 80 MG/0.8 ML SYR SC SCH (09:00)
[2025-01-15] MEDS ORDERED: Enoxaparin 100 MG/ML 1ML SYR SC SCH (09:00)
[2025-01-15] MEDS ORDERED: Amiodarone HCl 450 MG in NS 250 ML IV SCH (09:15)
[2025-01-15] MEDS ORDERED: Amiodarone HCl 150 MG in NS 100 ML IV ONE (09:15)
[2025-01-15] MEDS ORDERED: FentaNYL Citrate 50 MCG/ML 2 ML Injection IV PRN (15:45)
--- NOTE | 2025-01-15 18:07 | NUR ---
Shift Summary: No significant changes throughout shift. Patient remains oriented to self, place, date, but confused to reason for admission. Sleeping on/off throughout shift. C/o generalized pain and back pain, effectively managed with prn Tramadol while at rest, but c/o severe pain with repositioning/cares. X1 prn fentanyl given before last care, effective to decrease severity of pain. Heparin gtt discontinued this a.m, lovenox re-ordered per Dr. Fuentes this morning. Temp-pacer to rt IJ remains intact, patient maintained intrinsic HR throughout shift, no pacing required. Amiodarone bolus and gtt started this morning, patient HR and BP tolerated. Xiong cath remains patent and intact, draining clear dark yellow urine. Will continue to monitor until report to NOC shift RN.
[2025-01-16] VITALS (76 sets, daily range): BP systolic 79–123; BP diastolic 45–87
[2025-01-16 03:39] LABS: BASOPHILS ABSOLUTE AUTO 0.04 K/mm3 (0.00-0.23); BASOPHILS PERCENT AUTO 1 % (0-2); EOSINOPHILS ABSOLUTE AUTO 0.10 K/mm3 (0.00-0.68); EOSINOPHILS PERCENT AUTO 1 % (0-6); Hematocrit 38.2 % (33.0-51.0); Hemoglobin 12.7 g/dL (11.5-16.0); IMMATURE GRAN ABSOLUTE AUTO 0.06 K/mm3 (0.00-0.10); IMMATURE GRAN PERCENT AUTO 1 % (0-1); LYMPHOCYTES ABSOLUTE AUTO 1.05 K/mm3 (0.84-5.20); LYMPHOCYTES PERCENT AUTO 14 % (21-46); MONOCYTES ABSOLUTE AUTO 1.16 K/mm3 (0.16-1.47); MONOCYTES PERCENT AUTO 15 % (4-13); Mean Corpuscular HGB Conc 33.2 g/dL (31.5-36.5); Mean Corpuscular Volume 87 fL (80-100); NEUTROPHILS ABSOLUTE AUTO 5.20 K/mm3 (1.96-9.15); NEUTROPHILS PERCENT AUTO 68 % (41-73); NRBC ABSOLUTE 0.00 K/mm3 (0.00-0.02); NRBC Auto 0.0 /100 WBC (0.0-0.2); Platelet Count 112 K/mm3 (150-400); RDW Coefficient Variation 15.8 % (11.7-14.2); RDW Standard Deviation 50.4 fL (35.1-46.3)
[2025-01-16 03:51] LABS: Anion Gap 8.0 mmol/L (3-11); Blood Urea Nitrogen 32.0 mg/dL (8-24); CO2, Blood 23.0 mmol/L (21-32); Calcium, Blood 8.1 mg/dL (8.5-10.1); Chloride, Blood 111.0 mmol/L (98-108); Creatinine, Blood 0.95 mg/dL (0.40-1.00); Glucose, Blood 105.0 mg/dL (70-99); Potassium, Blood 4.0 mmol/L (3.5-5.5); Sodium, Blood 138.0 mmol/L (136-145)
--- NOTE | 2025-01-16 06:37 | NUR ---
SHIFT SUMMARY A/O X4, OCCAS FORGETFUL UPON WAKENING, BUT EASILY REORIENTED. FOLLOWS COMMANDS APPROP ABLE WITH SEVERE GENERALIZED WEAKNESS AND CHRONIC BACK PAIN. MEDS PRN FOR PAIN, C/O PAIN WITH REPOSITIONING. AMIO GTT CON'T AT 0.5 PER ORDER (SEE FLOWSHEET). AFIB IN 70'S MOST OF NIGHT. DENIES CP OR CHEST DISCOMFORT. TEMP PACER REMAINS PRESENT WITH BACK UP RATE OF 50, NO PACING NOTED DURING SHIFT. VSS. AFEBRILE. WILL UPDATE DAY RN WITH ALL OUTSTANDING ISSUES AND PROBLEMS TO DATE.
[2025-01-16] MEDS ORDERED: NS 1,000 ML IV SCH (14:20)
--- NOTE | 2025-01-16 18:25 | NUR ---
patient remains in ICU care. Amiodarone now given orally and heart rate is stable in the 80"s for the better part of the shift. Midodrine is scheduled for blood pressure which has been variable, however, not requiring additional means to raise BP. Urine output fell to ~ 10ml/hr in which Dr Fuentes was notified at at 14:15. orderred increase in rate of IVF. Output is increasing. See I&O flowsheet. Family has been at bedside today. , son and patient educated on Amiodarone and Midodrine. provided printed handout and given opportunity to ask questions.
[2025-01-17] VITALS (56 sets, daily range): BP systolic 77–124; BP diastolic 36–78
[2025-01-17 03:18] LABS: BASOPHILS ABSOLUTE AUTO 0.04 K/mm3 (0.00-0.23); BASOPHILS PERCENT AUTO 1 % (0-2); EOSINOPHILS ABSOLUTE AUTO 0.14 K/mm3 (0.00-0.68); EOSINOPHILS PERCENT AUTO 2 % (0-6); Hematocrit 40.7 % (33.0-51.0); Hemoglobin 13.2 g/dL (11.5-16.0); IMMATURE GRAN ABSOLUTE AUTO 0.10 K/mm3 (0.00-0.10); IMMATURE GRAN PERCENT AUTO 2 % (0-1); LYMPHOCYTES ABSOLUTE AUTO 1.10 K/mm3 (0.84-5.20); LYMPHOCYTES PERCENT AUTO 18 % (21-46); MONOCYTES ABSOLUTE AUTO 1.05 K/mm3 (0.16-1.47); MONOCYTES PERCENT AUTO 17 % (4-13); Mean Corpuscular HGB Conc 32.4 g/dL (31.5-36.5); Mean Corpuscular Volume 87 fL (80-100); NEUTROPHILS ABSOLUTE AUTO 3.84 K/mm3 (1.96-9.15); NEUTROPHILS PERCENT AUTO 61 % (41-73); NRBC ABSOLUTE 0.00 K/mm3 (0.00-0.02); NRBC Auto 0.0 /100 WBC (0.0-0.2); Platelet Count 114 K/mm3 (150-400); RDW Coefficient Variation 15.9 % (11.7-14.2); RDW Standard Deviation 50.2 fL (35.1-46.3)
[2025-01-17 03:53] LABS: Anion Gap 8.0 mmol/L (3-11); Blood Urea Nitrogen 32.0 mg/dL (8-24); CO2, Blood 23.0 mmol/L (21-32); Calcium, Blood 8.0 mg/dL (8.5-10.1); Chloride, Blood 109.0 mmol/L (98-108); Creatinine, Blood 0.78 mg/dL (0.40-1.00); Glucose, Blood 94.0 mg/dL (70-99); Potassium, Blood 4.0 mmol/L (3.5-5.5); Sodium, Blood 136.0 mmol/L (136-145)
--- NOTE | 2025-01-17 05:57 | NUR ---
SHIFT SUMMARY ORIENTED X4, BUT OCCAS FORGETFUL UPON WAKENING, EASILY REORIENTED. FOLLOWS COMMANDS ABLE WITH SEVERE GENERALIZED WEAKNESS AND CHRONIC PAIN. MEDS GIVEN PRN FOR PAIN. VSS T/O NIGHT, AFEBRILE. AM LABS UNREMARKABLE. TEMP PACER REMAINS INTACT WITH BACK UP RATE OF 50, NO PACING NOTED T/O NIGHT. WILL UPDATE DAY RN WITH ALL OUTSTANDING ISSUES AND PROBLEMS TO DATE.
[2025-01-17 08:23] LABS: pH Blood Venous 7.32 (7.34-7.37)
[2025-01-17] MEDS ORDERED: FentaNYL Citrate 50 MCG/ML 2 ML Injection IV PRN (09:55)
--- NOTE | 2025-01-17 17:35 | NUR ---
Patient continues ICU level care. Transvenous pacer discontinued by ice hockey coach this morning. Continueing to keep trevino due for close I&O monitoring that is just at or over 30ml/hr (see I&O flowsheet). Patient seemed in better spirits today, smiling more often and more interactive with staff. and son came visited today and was updated by RN.
--- NOTE | 2025-01-17 21:22 | NUR ---
ASSUMED CARE AT 1900 PATIENT REPSONDS TO VERBAL STIMULI, ORIENTED X SELF, HOSPITAL, AND MONTH BUT UNSURE OF CITY AND YEAR. SLOW TO REPSOND BUT FOLLOWS ALL COMMANDS. WEAKNESS THROUGHOUT. SP02 95% ON RA, DENIES SOB. HR AFIB 90s-110s, BP STABLE AT THIS TIME. PATIENT DENIES CP/PRESSURE. KWON PATENT AND DRAINING TO GRAVITY. REPOSITIONED SIDE TO SIDE. CALL LIGHT IN REACH. SEE SHIFT ASSESSMENT FOR MORE INFORMATION
[2025-01-18] VITALS (67 sets, daily range): BP systolic 65–137; BP diastolic 34–125
[2025-01-18 04:40] LABS: Hematocrit 36.0 % (33.0-51.0); Hemoglobin 11.7 g/dL (11.5-16.0); Mean Corpuscular HGB Conc 32.5 g/dL (31.5-36.5); Mean Corpuscular Volume 88 fL (80-100); NRBC ABSOLUTE 0.00 K/mm3 (0.00-0.02); NRBC Auto 0.0 /100 WBC (0.0-0.2); Platelet Count 117 K/mm3 (150-400); RDW Coefficient Variation 15.9 % (11.7-14.2); RDW Standard Deviation 51.5 fL (35.1-46.3)
[2025-01-18 05:00] LABS: Alanine Aminotransfer (ALT/SGP 43.0 U/L (12-78); Albumin, Blood 1.9 g/dL (3.4-5.0); Albumin/Globulin Ratio 0.7 (0.8-1.8); Anion Gap 10.0 mmol/L (3-11); Aspartate Aminotrans (AST/SGOT 52.0 U/L (12-37); Bilirubin, Total 0.8 mg/dL (0.1-1.0); Blood Urea Nitrogen 24.0 mg/dL (8-24); CO2, Blood 19.0 mmol/L (21-32); Calcium, Blood 7.5 mg/dL (8.5-10.1); Chloride, Blood 113.0 mmol/L (98-108); Creatinine, Blood 0.75 mg/dL (0.40-1.00); Globulin, Blood 2.7 g/dL (2.2-4.0); Glucose, Blood 73.0 mg/dL (70-99); Potassium, Blood 4.0 mmol/L (3.5-5.5); Sodium, Blood 138.0 mmol/L (136-145); Total Protein, Blood 4.6 g/dL (6.4-8.2)
[2025-01-18 05:25] LABS: BAND PERCENT MAN 5 % (0-8); BASOPHILS ABSOLUTE MAN 0.00 K/mm3 (0.00-0.23); BASOPHILS PERCENT MAN 0 % (0-2); EOSINOPHILS ABSOLUTE MAN 0.06 K/mm3 (0.00-0.68); EOSINOPHILS PERCENT MAN 1 % (0-6); LYMPHOCYTES ABSOLUTE MAN 0.36 K/mm3 (0.84-5.20); LYMPHOCYTES PERCENT MAN 6 % (21-46); METAMYELOCYTE ABSOLUTE MAN 0.06 K/mm3 (0.00-0.00); METAMYELOCYTE PERCENT MAN 1 % (0-0); MONOCYTES ABSOLUTE MAN 0.60 K/mm3 (0.16-1.47); MONOCYTES PERCENT MAN 10 % (4-13); NEUTROPHILS ABSOLUTE MAN 4.94 K/mm3 (1.96-9.15); SEG NEUTROPHILS PERCENT MAN 77 % (41-73)
--- NOTE | 2025-01-18 06:21 | NUR ---
SHIFT SUMMARY PATIENT REMAINS ALERT BUT LESS ORIENTED, PICKING AT THINGS AND DIFFICULT TO UNDERSTAND AT TIMES. REDIRECTABLE. PRN PAIN MEDS GIVEN PER EMAR WHEN BP ALLOWED. BP HYPOTENSIVE AND LABILE THROUGH THE NIGHT. SP02 94% ON RA. DENIES SOB. KWON PATENT AND DRAINING TO GRAVITY. PATIENT REPOSITIONED Q2 HOURS. CALL LIGHT IN REACH
--- NOTE | 2025-01-18 08:30 | NUR ---
BILATERAL CALF WOUNDS: PATIENT HAS A LARGE DARK PURPLE HEMATOMA ON THE BACK OF HER UPPER LEFT CALF. PATIENT DOES NOT REACT STRONGLY TO PALPATION OF THE HEMATOMA. PEDAL PULSES PRESENT VIA DOPPLER. PATIENT HAS A LARGE, DARK PURPLE BRUISE ON THE UPPER PORTAION OF RIGHT CALF. THIS IS TENDER TO PALPATION. PEDAL PULSES PRESENT VIA DOPPLER IN RIGHT LEG. PHOTOS TAKEN. DR. BUI NOTIFIED AND VISUALIZED BOTH WOUNDS AT BEDSIDE.
--- NOTE | 2025-01-18 10:39 | NUR ---
HYPOTENSION: PATIENT HAS EXPERIENCED MAPS 57-66 THIS MORNING. AT TIMES, THE MAP IS GREATER THAN 65, BUT OVERALL, IT IS GENERALLY LOWER THAN 65. DR. BUI NOTIFIED. NEW ORDERS RECEIVED.
[2025-01-18] MEDS ORDERED: D5W-1/2NS 1,000 ML IV SCH (10:40)
[2025-01-18] MEDS ORDERED: Polyethylene Glycol 3350 17 gm PO PRN (10:45)
[2025-01-18] MEDS ORDERED: Remdesivir (EUA) 100 MG in NS 250 ML IV SCH (12:00)
--- NOTE | 2025-01-18 12:30 | NUR ---
PERSISTANT HYPOTENSION: AT THIS TIME, PATIENT IS RECEIVING LEVOPHED AT 8 MCG/MIN WITH BPS 80S/40S AND MAPS IN THE 50S. DISCUSSED WITH DR. BUI. NEW ORDERS FOR CENTRAL LINE PLACEMENT. DR. STATON NOTIFIED.
[2025-01-18 13:24] LABS: Hematocrit 30.6 % (33.0-51.0); Hemoglobin 9.9 g/dL (11.5-16.0)
[2025-01-18] MEDS ORDERED: Atropine Sulfate 1% Opth Soln 2ML BTL SL PRN (15:50)
[2025-01-18] MEDS ORDERED: LORazepam 2 MG/ML 1ML Injection IV PRN (15:50)
[2025-01-18] MEDS ORDERED: Morphine Sulfate 20 MG/1ML 1 ML Oral Syringe SL PRN (15:50)
[2025-01-18] MEDS ORDERED: Ondansetron 4 MG SoluTab SL PRN (16:05)
--- NOTE | 2025-01-18 16:13 | NUR ---
PALLIATIVE CARE NOTE: CALLED SPOUSE TO PROVIDE UPDATE ON PATIENT CONDITION AT REQUEST OF MD AND DR. DUPREE. PROVIDED EDUCATION ON WHAT A CENTRAL LINE IS, WHAT REASONS THE CENTRAL LINE WAS PLACED FOR. WE DISCUSSED CPR VS DNR CODE STATUS. SPOUSE MARJORIE WAS EDUCATED ON WHAT THOSE MEASURES ARE. INFORMED MARJORIE WE HAD POLST ON FILE STATING CPR, LIMITED TREATMENT. ADVISED HIM IF HIS NEEDED CPR SHE WOULD MOST DEFINITELY NEED TO BE INTUBATED TO PROTECT HER AIRWAY. WITH THAT, SPOUSE STATED HIS AND HIM HAVE HAD CONVERSATIONS ABOUT WHAT THEY WOULD WANT DONE AND SHE DID NOT WANT CPR OR INTUBATION. HE MADE THE DECISION TO CHANGE HER CODE STATUS TO DNR. WE DISCUSSED PAIN MANAGEMENT AND DIFFICULTIES IT PRESENTS TO MANAGE DUE TO LOW BLOOD PRESSURES. HE STATED HE JUST WANTED HER COMFORTABLE AT THIS TIME. EDUCATED SPOUSE ON COMFORT MEASURES VS HOME WITH HOSPICE. PER SPOUSE HE WANTS HER COMFORTABLE NOW AND DOES NOT WANT TO WAIT FOR HOSPICE. HE IS AGREEABLE TO COMFORT CARE MEASURES. HE REQUESTED I TO CALL SON AND GIVE HIM UPDATE. I CALLED NUMBER ON FILE AND LEFT A MESSAGE. OF YET NO RETURN CALL RECEIVED. SPOKE TO DR. BUI AND HE IS AGREEABLE TO DNR, COMFORT MEASURES. PLACED ORDERS FOR COMFORT CARE AFTER WAITING 15 MINUTES TO DISCUSS WITH SON PER DR. BUI'S REQUEST. UPDATED PRIMARY RN. SHE REPORTED PT CAN NO LONGER SWALLOW MEDICATIONS. PT IS VERY PAINFUL AT THIS TIME. DC'D MEDICATIONS THAT WOULD NEED TO BE SWALLOWED. PLACED COMFORT MEDICATIONS. PER SPOUSE, HE WILL COME TO VISIT PT SOON. EDUCATED HIM ON ISOLATION PRECAUTIONS FOR HIS SAFETY.
[2025-01-18] MEDS ORDERED: Morphine Sulfate 10 MG/ML 1MLSYR IV PRN (16:50)
--- NOTE | 2025-01-18 17:28 | NUR ---
UPDATE TO DAUGHTER SOHA: PER DAUGHTER'S REQUEST, UPDATED HER ON PATIENT STATUS AND EVENTS OF TODAY THAT LED TO COMFORT CARE DECISION. PROVIDED A BRIEF EXPLANATION AND DISCUSSION. ALL QUESITONS AND CONCERNS ADDRESSED AT THIS TIME. SHE IS UNDERSTANDING AND APPRECIATIVE OF THE CARE THE PATIENT HAS RECEIVED.
--- NOTE | 2025-01-18 18:50 | NUR ---
SHIFT SUMMARY: DURING THE SHIFT, PLAN WAS MADE WITH THE PATIENT'S FAMILY, PALLIATIVE CARE, AND THE PRIMARY PHYSICIAN TO TRANSITION TO COMFORT CARE. PRIOR TO THIS CONVERSATION, PATIENT HAD REQUIRED THAT LEVOPHED BE RESTARTED AND A CENTRAL LINE BE PLACED. PATIENT WAS IN PAIN WITH REPOSITIONING AND PROCEDURES. ONCE COMFORT CARE ORDERS IN PLACE, ABLE TO MANAGE PAIN AND DISCOMFORT WITH PRNS. FAMILY AT BEDSIDE AFTER THE DECISION WAS MADE. NOTIFIED SPOUSE THAT WITH THE DISCONTINUATION OF LEVOPHED, THE PATIENT MIGHT PASS QUICKLY. HE RESPONDED THAT HE UNDERSTOOD THIS. HE REPORTED THAT HE WILL BE BACK TOMORROW. DAUGHTER SOHA ALSO UPDATED. NEURO: PATIENT STARTED THE SHIFT WITH CONFUSION, MUMBLING AND A CBG OF 65. AFTER EATING SOME OF HER BREAKFAST, PATIENT'S MENTATION IMPROVED. SHE WAS ABLE TO CLEARLY ANSWERING YES/NO QUESTIONS AND MAKE SOME OF HER NEEDS KNOWN. PATIENT PAINFUL THROUGHOUT THE SHIFT WITH REPOSITIONING. RESPIRATORY: PATIENT STABLE ON ROOM AIR WITH SPO2 .96-100%. CARDIAC: LEVOPHED GTT DISCONTINUED WITH COMFORT CARE ORDERS. WITH 8 MCG/MIN, PATIENT'S MAP IN THE LOW TO MID 60'S. HR IN THE 80S-110S. WITH REPOSITIONING AND DISCOMFORT, HR HIGH 140S. PATIENT DID NOT SUSTAIN THIS HIGH. LARGE HEMATOMA NOTED ON LEFT CALF THIS AM. SEE NURSE'S NOTES. PEDAL PULSES PRESENT THROUGHOUT SHIFT. GI/: PATIENT TOLERATED SWALLOWING THIS AM WITHOUT DIFFICULTY, PILLS, FOOD AND THIN LIQUIDS. EARLY IN THE AFTERNOON, PATIENT NO LONGER TOLERATED SWALLOWING WITHOUT COUGHING AND CHOKING. AFTERNOON PO PILLS HELD. NO BOWEL MOVEMENT TODAY. PSYCHSOCIAL: PATIENT CALM AND COOPERATIVE WITH CARE. MEDICATED PER COMFORT CARE NEEDS. STAFF AT BEDSIDE TO ENSURE THAT PATIENT RECEIVED VERBAL REASSURANCE AND COMFORT.
--- NOTE | 2025-01-18 21:54 | NUR ---
ASSUMED CARE THIS RN ASSUMED CARE OF PT @ APPROXIMATELY 2130. THIS RN AGREES WITH INITIAL SHIFT ASSESSMENT. PT RESTING COMFORTABLY IN BED, CALL LIGHT WITHIN REACH. NO IMMEDIATE CONCERNS OR NEEDS NOTED AT THIS TIME.
--- NOTE | 2025-01-19 06:23 | NUR ---
SHIFT SUMMARY PT RESTING T/O THE NIGHT. MEDICATED PRN FOR COMFORT. REPOSITIONED PRN FOR COMFORT AND TO PREVENT SKIN BREAKDOWN. VSS. CALL LIGHT WITHIN REACH. NO IMMEDIATE NEEDS NOTED AT THIS TIME. WILL REPORT TO ONCOMING RN.
--- NOTE | 2025-01-19 08:00 | NUR ---
ASSUMED CARE THIS RN ASSUMED CARE OF PATIENT AT 0700 WITH PRECEPTOR KIZZY BURNHAM. PATIENT IS RESTING WITH EYES CLOSED. SHE APPEARS COMFORTABLE WITHOUT GRIMACE, MOANS, OR CRYING. SHE IS ON RA WITH EVEN AND UNLABORED RESPIRATIONS. PATIENT REPOSITIONED FOR COMFORT. CALL LIGHT IN REACH.
--- NOTE | 2025-01-19 10:25 | NUR ---
Spiritual Care Family Support. Met with Spouse of Pt. before he left for an appointment. Agreed to resume support when he returned to bedside. Spouse verbalized gratitude fo rthe spiritual care support. Informed attending nurse.
[2025-01-19] MEDS ORDERED: FentaNYL Citrate 50 MCG/ML 2 ML Injection IV PRN (10:55)
--- NOTE | 2025-01-19 11:56 | NUR ---
"Spiritual Care | Comfort Care Bedside Visit. Pt. is on comfort care and is mostly somnolent. A visitor must have just left the room as no others are present. On the basis of the Pts. SDA sage, prayers of comfort and God's presence are given. This rehabilitation counselor will remain available to the Pt. and family."
--- NOTE | 2025-01-19 16:04 | NUR ---
"Spirituat Care | Comfort Care | EOL Education Pt. is on comfort care and is mostly not responsive. Pts. son and DIL are present. Facilitated a life review with the family. At families request Prayed over the Pt. and for the family. A comfort quilt is provided. DIL inquired about EOL protocol. EOL Education is given. BRIDGET verbalized that [facility] would likely be the home the family would choose, through she was going to confirm with the Pts. spouse. [facility] nurse was notified of the home choice. Family verbalized gratitude for the spiritual care visit."
--- NOTE | 2025-01-19 17:29 | NUR ---
PALLIATIVE CARE VISIT: REVIEWED MEDICATION ADMINISTRATION AND CHART NOTES. SPOKE TO PRIMARY RN. PT HAS SEVERE TEXTILE DISTURBANCE AND CANNOT TOLERATE EVEN LIGHT TOUCH DESPITE ADMINISTRATION OF ALTERNATING IV FENTANYL AND MORPHINE. CALLED MD AND RECEIVED ORDER FOR DEXAMETHASONE 4 MG IV Q6 PRN FOR INFLAMMATION AND HALDOL 2.5-5 MG Q6 PRN FOR AGITATION. PLACED ORDERS REQUESTED. PROVIDED NECK PILLOW FOR COMOFRT. ALSO SUGGESTED USE OF TYLENOL SUPPOSITORY FOR PAIN.
[2025-01-19] MEDS ORDERED: Dexamethasone Sodium Phosphate 4 MG/ML 1ML Vial IV PRN (17:30)
[2025-01-19] MEDS ORDERED: Haloperidol Lactate Inj. 5 MG/ML Injection IV PRN (17:30)
--- NOTE | 2025-01-19 17:32 | NUR ---
SHIFT SUMMARY THERE HAS BEEN NO ACUTE EVENTS THIS SHIFT. PATIENT HAS BEEN RESTING WITH EYES CLOSED AND ONLY RESPONSIVE TO PAINFUL STIMULI. SHE HAS ROUSED SLIGHTLY AND MOANED "HELP ME" WHEN TOUCHED, BUT DOES NOT RESPOND TO ANY QUESTIONS. SHE IS COMFORTED BY SOFT MUSIC, DIM LIGHTING, AND REPOSITIONING WITH PAIN MEDICATION PER EMAR. HER RESPIRATIONS HAVE BEEN EVEN AND UNLABORED. PULSES PRESENT BILATERALLY, 80-100S. HER SKIN HAS LARGE SCATTERED BRUISES T/O W/ WEEPING EDEMA. PATIENT'S SON, DAUGHTER, AND HAVE BEEN AT HER BESIDE THROUGH THE DAY. KWON CATHETER PATENT AND DRAINING CLEAR YELLOW URINE TO GRAVITY. CALL LIGHT IN REACH.
--- NOTE | 2025-01-20 06:23 | NUR ---
SHIFT SUMMARY PT MORE RESPONSIVE AT BEGINNING OF SHIFT, MOANING IN PAIN, D-I-L AT BEDSIDE PLAYING MUSIC FOR PT COMFORT. ATIVAN AND MORPHINE GIVEN T/O NIGHT TO KEEP PT COMFORTABLE. NO LONGER OPENING EYES TO PAIN, RESTING W/O MOANING OR COMPLAINT AT THIS TIME. WILL UPDATE DAY RN WITH ANY OUTSTANDING ISSUES OR PROBLEMS TO DATE.
--- NOTE | 2025-01-20 08:00 | NUR ---
ASSUMED CARE/FINAL DISCHARGE THIS RN ASSUMED CARE OF PATIENT AT 0700 WITH PRECEPTOR CHACHA DURAND. PATIENT WAS RESTING WITH EYES CLOSED AT BSSR WITH EVEN AND UNLABORED RESPIRATIONS. HER FAMILY WAS PRESENT. SHE WAS NOT GRIMACING OR MOANING IN PAIN. AT 0740 DURING SHIFT COMFORT ASSESSMENT PATIENT'S RESPIRATIONS WERE NOTED TO HAVE CEASED WITH FAINT HEARTBEAT STILL PRESENT. AT 0750 PATIENT'S CARDIAC ACTIVITY CEASED AND WAS VERIFIED BY CHACHA DURAND. VP PACKAGING WAS NOTIFED. BELONGINGS WITH FAMILY.
--- NOTE | 2025-01-20 08:35 | NUR ---
"Spiritual Care | EOL Pt. 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 Son is present. Grief youth counselor is employed. Spouse and DIL arrived. Multiple prayers are given for the Pt. and and the family who are gathered at bedside. Family verbally confirmed [facility] as their home. EOL Education is given. Family verbalized gratitude for the spiritual care, and the comfort measures of the quilt and the neck pillow. Nursing staff is notified of families plans."
== END 2025-01-20 11:00 | DRG 871 ==
LOC: ER 00:03 → PCU 03:50 → ERHOLD 03:50 → ICUE 03:50 → PCU 06:01 → ICUE 01-13 21:38
PROVIDERS: Emergency Medicine; Family Medicine; Internal Medicine; Nurse Practitioner Acute Care; ADMIT Student in an Organized Health Care Education/Training Program
PROC: XW033E5 Introduction of Remdesivir Anti-infective into Peripheral Vein, Percutaneous Approach, New Technology Group 5 (ICD-10-PCS; principal; 2025-01-12)
PROC: 3E03329 Introduction of Other Anti-infective into Peripheral Vein, Percutaneous Approach (ICD-10-PCS; 2025-01-12)
PROC: 8E0ZXY6 Isolation (ICD-10-PCS; 2025-01-12)
PROC: 3E033XZ Introduction of Vasopressor into Peripheral Vein, Percutaneous Approach (ICD-10-PCS; 2025-01-13)
PROC: 0T9B70Z Drainage of Bladder with Drainage Device, Via Natural or Artificial Opening (ICD-10-PCS; 2025-01-14)
PROC: 5A1223Z Performance of Cardiac Pacing, Continuous (ICD-10-PCS; 2025-01-14)
PROC: 02H633Z Insertion of Infusion Device into Right Atrium, Percutaneous Approach (ICD-10-PCS; 2025-01-18)
PROC: 3E0333Z Introduction of Anti-inflammatory into Peripheral Vein, Percutaneous Approach (ICD-10-PCS; 2025-01-19)
DX: A41.89 Other specified sepsis (principal); E43 Unspecified severe protein-calorie malnutrition; U07.1 COVID-19; J12.82 Pneumonia due to coronavirus disease 2019; J96.01 Acute respiratory failure with hypoxia; I50.32 Chronic diastolic (congestive) heart failure; Z51.5 Encounter for palliative care; Z66 Do not resuscitate; N17.9 Acute kidney failure, unspecified; R57.9 Shock, unspecified; I13.0 Hypertensive heart and chronic kidney disease with heart failure and stage 1 through stage 4 chronic kidney disease, or unspecified chronic kidney disease; J91.8 Pleural effusion in other conditions classified elsewhere; R65.20 Severe sepsis without septic shock; Z78.1 Physical restraint status; G89.29 Other chronic pain; M54.9 Dorsalgia, unspecified; I48.0 Paroxysmal atrial fibrillation; M79.81 Nontraumatic hematoma of soft tissue; E03.9 Hypothyroidism, unspecified; I07.1 Rheumatic tricuspid insufficiency; I49.5 Sick sinus syndrome; M81.0 Age-related osteoporosis without current pathological fracture; N18.9 Chronic kidney disease, unspecified; F03.90 Unspecified dementia, unspecified severity, without behavioral disturbance, psychotic disturbance, mood disturbance, and anxiety; L40.50 Arthropathic psoriasis, unspecified; D69.6 Thrombocytopenia, unspecified; I46.9 Cardiac arrest, cause unspecified; Z85.3 Personal history of malignant neoplasm of breast; Z86.718 Personal history of other venous thrombosis and embolism; Z86.711 Personal history of pulmonary embolism; Z88.8 Allergy status to other drugs, medicaments and biological substances; Z68.28 Body mass index [BMI] 28.0-28.9, adult; Z79.890 Hormone replacement therapy; Z90.13 Acquired absence of bilateral breasts and nipples; Z79.891 Long term (current) use of opiate analgesic; Z79.899 Other long term (current) drug therapy
CPT/HCPCS: 33210; 36415; 36556; 51702; 71045; 71260; 73706; 76937; 80048; 80053; 80076; 80162; 82570; 82803; 82947; 83605; 83735; 83880; 84100; 84145; 84300; 84439; 84443; 84484; 85014; 85018; 85025; 85027; 85520; 85610; 85730; 87637; 93005; 93010; 93306; 93971; 94762; 96361; 96374-59; 96375-59; 97110; 97162; 97166; 97530; 97535; 99285-25; A9270; C1751; C1894; J0248; J0282; J0456; J0696; J1100; J1160; J1644; J1650; J2060; J2250; J2270; J2405; J3010; J3475; J7030; J7040; J7042; J7050; J7120; Q9967